=== PATIENT | male | born 1945 | race Caucasian/White ===

== ENCOUNTER 2016-04-09 15:23 | Inpatient (IN) | payer OTHER ==
[2016-04-09] MEDS ORDERED: NS 1,000 ML IV ONE (15:35)
--- NOTE | 2016-04-09 15:52 | EDPHY ---
HPI/HX/ROS/PE/MDM Narrative: CHIEF COMPLAINT: No appetite, feels like it's "time to " HPI: The patient is a 70 y/o male arriving with his family member after a month of consciously not eating because he feels like it is his time to requesting help eating. He says he has a history of "self-diagnosed prostate cancer" that he treated with "prayer and diet" and is now cured. Over the past couple months he's experienced loss of appetite. Following an anxiety attack around the first of March he made a conscious decision to stop eating because he "got a feeling like it was time for me to ." He's had a sense of dread surrounding the new president and says, "I thought if I just stayed in bed a little longer that would be it and I'd and [facility] His family member says the patient looks significantly worse than 6 months ago. He is here in the ED today requesting assistance with his loss of appetite. He says, "I need to eat. I need to get my health back." He denies abdominal pain, fever, diarrhea. REVIEW OF SYSTEMS: Aside from elements discussed in the HPI, a comprehensive 10-point review of systems was reviewed and is negative. PMH: "self-diagnosed prostate cancer treated with prayer and diet" - symptoms of bleeding and prostate cancer SOCIAL HISTORY: Family member at bedside. Psychiatrist - "I'm a doctor. I've been living a spiritual life for the last 40 years." Recently on several cruises. PHYSICAL EXAM: General:Patient is alert, in no acute distress. Cachectic with temporal wasting. ENT:Eyes are normal to inspection. ENT inspection normal. Dry mucous membranes. Neck: Normal inspection. Full range of motion. Respiratory:No respiratory distress. Breath sounds normal bilaterally. Cardiovascular: Tachycardic regular rate and rhythm. Strong peripheral pulses. Normal cap refill. Abdomen:The abdomen is nontender to palpation. There are no peritoneal signs. There are normal bowel sounds. Back: Normal to inspection. No tenderness to palpation. Skin: Normal color. No rash. Warm and dry. Extremities: Normal appearance. Full range of motion. Neuro: Oriented x3. Normal motor function. Normal sensory function. ED Course: IV established. Labs drawn including CBC, CHEM, LFT, UA. 1L IV NS administered. Several critical labs: potassium low at 6.7, WBC elevated 15.05, Hct low 24.8, urine culture indicated, BUN >200, creatinine elevated at 21.8. 1637: Reevaluated and discussed labs with patient and his family member. He continues to feel weak and states, "a human cannot survive on coca cola." I recommended admission to the hospital and further testing to determine cause of his renal function, which he agrees to. I suspect his story about untreated prostate cancer may be related to his current presentation. Chest x-ray, head CT , and EKG ordered. The 12 lead EKG was interpreted by myself. Sinus rhythm rate 85. See hard copy and/or "tracemaster" electronic copy for interpretation. Study: CT of the Head Indication: AMS, renal failure Results: CT scan of the head was obtained. The results of the study are negative. The study was read by the radiologist, Dr. Ortega. I viewed the images myself on the PACS system. Study: Chest x-ray Indication: AMS, renal failure Results: Chest x-ray was obtained. The results of the study are The study was read by the radiologist, . I viewed the images myself on the PACS system. 1648: Spoke with hospitalist service. Dr. Murcia accepts admission. - Data Points Laboratory Results: Laboratory Results 04/09/16 15:50 04/09/16 15:50 04/09/16 15:50 WBC 15.05 H 10^3/uL (3.80-9.50) RBC 2.83 L 10^6/uL (4.40-6.38) Hgb 8.4 L g/dL (13.7-17.5) Hct 24.8 L % (40.0-51.0) MCV 87.6 fL (81.5-99.8) MCH 29.7 pg (27.9-34.1) MCHC 33.9 g/dL (32.4-36.7) RDW 12.3 % (11.5-15.2) Plt Count 504 H 10^3/uL (150-400) MPV 9.4 fL (8.7-11.7) Neut % (Auto) 89.4 H % (39.3-74.2) Lymph % (Auto) 3.5 L % (15.0-45.0) Meagher % (Auto) 5.9 % (4.5-13.0) Eos % (Auto) 0.1 L % (0.6-7.6) Baso % (Auto) 0.1 L % (0.3-1.7) Nucleat RBC Rel Count 0.0 % (0.0-0.2) Absolute Neuts (auto) 13.45 H 10^3/uL (1.70-6.50) Absolute Lymphs (auto) 0.53 L 10^3/uL (1.00-3.00) Absolute Monos (auto) 0.89 H 10^3/uL (0.30-0.80) Absolute Eos (auto) 0.01 L 10^3/uL (0.03-0.40) Absolute Basos (auto) 0.02 10^3/uL (0.02-0.10) Absolute Nucleated RBC 0.00 10^3/uL (0-0.01) Immature Gran % 1.0 % (0.0-1.1) Immature Gran # 0.15 H 10^3/uL (0.00-0.10) PT 15.4 H SEC (12.0-15.0) INR 1.22 H (0.83-1.16) APTT 38.3 H SEC (23.0-38.0) Sodium 137 mEq/L (134-144) Potassium 6.7 H* mEq/L (3.5-5.2) Chloride 97 mEq/L (97-110) Carbon Dioxide 7 L* mEq/l (22-31) Anion Gap 33 mEq/L (8-16) BUN > 200 H* mg/dL (7-23) Creatinine 21.8 H* mg/dL (0.7-1.3) Estimated GFR 2 Glucose 136 H mg/dL (70-100) Calcium 8.6 mg/dL (8.5-10.4) Phosphorus 11.9 H mg/dL (2.5-4.5) Total Bilirubin 0.6 mg/dL (0.1-1.4) Conjugated Bilirubin 0.9 H mg/dL (0.0-0.5) Unconjugated Bilirubin 0.0 mg/dL (0.0-1.1) AST 13 L IU/L (17-59) ALT 27 IU/L (21-72) Alkaline Phosphatase 94 IU/L (38-126) Troponin I 0.013 ng/mL (0-0.034) Total Protein 9.1 H g/dL (6.3-8.2) Albumin 4.6 g/dL (3.5-5.0) Urine Color YELLOW Urine Appearance TURBID Urine pH 5.0 (5.0-7.5) Ur Specific [place] 1.011 (1.002-1.030) Urine Protein 2+ H (NEGATIVE) Urine Ketones NEGATIVE (NEGATIVE) Urine Blood 2+ H (NEGATIVE) Urine Nitrate NEGATIVE (NEGATIVE) Urine Bilirubin NEGATIVE (NEGATIVE) Urine Urobilinogen NEGATIVE EU (0.2-1.0) Ur Leukocyte Esterase 2+ H (NEGATIVE) Urine RBC 25-50 H /hpf (0-3) Urine WBC 50-182 H /hpf (0-3) Ur Epithelial Cells TRACE /lpf (NONE-1+) Urine Bacteria 3+ H /hpf (NONE SEEN) Ur Culture Indicated? INDICATED H (NI) Urine Glucose NEGATIVE (NEGATIVE) Medications Given: Discontinued Medications Sodium Chloride (Ns) 1,000 mls @ 0 mls/hr IV ONCE ONE PRN Reason: Wide Open Stop: 04/09/16 15:36 Last Admin: 04/09/16 15:59 Dose: 1,000 mls General Time Seen by Provider: 04/09/16 15:27 Initial Vital Signs: Initial Vital Signs Temperature (C) 36.3 C 04/09/16 15:28 Heart Rate 116 H 04/09/16 15:28 Respiratory Rate 22 H 04/09/16 15:28 Blood Pressure 179/96 H 04/09/16 15:28 O2 Sat (%) 95 04/09/16 15:28 O2 Delivery Mode Room Air Allergies/Adverse Reactions: No Known Allergies Allergy (Unverified 04/09/16 15:26) Home Medications: Medication Instructions Recorded NK [No Known Home Meds] 04/09/16 Departure - Departure Disposition: [facility] Inpatient Acute Clinical Impression: Acute renal failure, Cachexia, Dehydration, Anemia, Altered mental status, Hypokalemia, Loss of appetite Condition: Fair Referrals: NONE *PRIMARY CARE P,. [Primary Care Provider] - As per Instructions Report Scribed for: Jatin Dumont Report Scribed by: Kalyn Price Date of Report: 04/09/16 Time of Report: 15:34 Physician Review and Approval Statement: Portions of this note were transcribed by an ED scribe. I personally performed the history, physical exam, and medical decision making; and confirm the accuracy of the information in the transcribed note.
[2016-04-09 16:03] LABS: ABSOLUTE IMMATURE GRANULOCYTES 0.15 10^3/uL (0.00-0.10); ADD DIFF? NO; ADD MORPH? NO; ADD SCAN? NO; ATYPICAL LYMPHOCYTE FLAG 0 (0-99); FRAGMENT RBC FLAG 0 (0-99); HEMATOCRIT 24.8 % (40.0-51.0); HEMOGLOBIN 8.4 g/dL (13.7-17.5); LEFT SHIFT FLG 0 (0-99); LIPEMIA HEMOLYSIS FLAG 90 (0-99); MEAN CELL HEMOGLOBIN 29.7 pg (27.9-34.1); MEAN CELL HEMOGLOBIN CONCENTR. 33.9 g/dL (32.4-36.7); MEAN CELL VOLUME 87.6 fL (81.5-99.8); MEAN PLATELET VOLUME 9.4 fL (8.7-11.7); PLATELET CLUMPS FLAG 0 (0-99); PLATELET COUNT 504 10^3/uL (150-400); RED BLOOD CELL COUNT 2.83 10^6/uL (4.40-6.38); RED CELL DISTRIBUTION WIDTH 12.3 % (11.5-15.2)
[2016-04-09 16:15] LABS: COLOR YELLOW; LEUKOCYTE ESTERASE,URINE 2+ (NEGATIVE); NITRITE,URINE NEGATIVE (NEGATIVE)
[2016-04-09 16:22] LABS: ALANINE AMINOTRANSFERASE 27 IU/L (21-72); ALBUMIN 4.6 g/dL (3.5-5.0); ALKALINE PHOSPHATASE 94 IU/L (38-126); ASPARTATE AMINOTRANSFERASE 13 IU/L (17-59); BILIRUBIN,TOTAL 0.6 mg/dL (0.1-1.4); CALCIUM 8.6 mg/dL (8.5-10.4); CHLORIDE 97 mEq/L (97-110); GLUCOSE 136 mg/dL (70-100); SODIUM 137 mEq/L (134-144); TOTAL PROTEIN 9.1 g/dL (6.3-8.2)
[2016-04-09 16:23] LABS: BACTERIA 3+ /hpf (NONE SEEN); RBC,URINE 25-50 /hpf (0-3); WBC,URINE 50-182 /hpf (0-3)
[2016-04-09 16:26] LABS: CARBON DIOXIDE 7 mEq/l (22-31); POTASSIUM 6.7 mEq/L (3.5-5.2)
[2016-04-09 16:27] LABS: ANION GAP 33 mEq/L (8-16)
[2016-04-09 16:34] LABS: TROPONIN I 0.013 ng/mL (0-0.034)
[2016-04-09 16:35] LABS: GLOMERULAR FILTRATION RATE 2
[2016-04-09 16:37] LABS: CREATININE 21.8 mg/dL (0.7-1.3)
[2016-04-09 16:47] LABS: BILIRUBIN-CONJUGATED 0.9 mg/dL (0.0-0.5)
--- NOTE | 2016-04-09 16:47 | CPEKG ---
Heart Rate: 85 RR Interval: 706 P-R Interval: 156 QRSD Interval: 86 QT Interval: 372 QTC Interval: 443 P [place]: 73 QRS [place]: 6 T Wave [place]: 62 EKG Severity - NORMAL ECG - EKG Impression: SINUS RHYTHM Electronically Signed By: Claude Aparicio 09-Apr-2016 19:53:38
[2016-04-09 16:53] LABS: APTT 38.3 SEC (23.0-38.0); INR 1.22 (0.83-1.16); PROTIME(PATIENT) 15.4 SEC (12.0-15.0)
[2016-04-09] MEDS ORDERED: NS 1,000 ML IV SCH (17:00)
[2016-04-09] MEDS ORDERED: SODIUM POLY SULF 15 GM/60 ML BOTTLE PO ONE (17:03)
--- NOTE | 2016-04-09 17:18 | CT ---
CT Scan of the Head (Without Contrast) Clinical History: 70-year-old male with weight loss, nausea, and an altered mental status. Technique: Axial unenhanced images were obtained from the vertex through the skull base, reformatted at 5.00 and 1.50 mm increments, and reviewed in bone, brain, and subdural windows. Images were repro cessed in parasagittal and paracoronal planes. Dose reduction techniques were utilized. Comparison Study: None. Findings: The ventricles and basilar cisterns are mildly prominent (however consistent with mild age- appropriate cerebral cortical atrophy), and symmetrical in configuration. There is no midline shift, or other evidence of mass effect. There is no abnormal intra or extra-axial blood collection, or acut e infarction identified. The paranasal sinuses and the mastoids are patent. The craniocervical juncti on, sella turcica, pineal gland, and the orbits are within normal limits. There is atherosclerotic ca lcification of the cavernous carotid arteries. Impression: There is no acute abnormality identified on this unenhanced CT evaluation. If there is further clinical concern regarding the patient's symptoms, MR imaging is suggested, if no t otherwise contraindicated. Results were called to Dr. Jatin Dumont. A test result has been communicated to a licensed care provider and documented in the [employer] Critical Result system on 04/09/2016 17:13, Message ID [id number].
--- NOTE | 2016-04-09 17:41 | DX ---
Chest, PA and Lateral Views, at 4:46 p.m. Clinical History: 70-year-old male in the ED with dyspnea, weight loss, and nausea. Comparison Study: None. Findings: Telemetry monitoring lead lines are present. The cardiac silhouette is mildly enlarged, and there is some tortuosity of the descending thoracic aorta. There is no focal infiltrate, atelectasis , pleural effusion, peripheral interstitial edema, or pneumothorax. The osseous structures are age-ap propriate, with some degenerative change of the midthoracic spine and a mild kyphoscoliosis. The ian ent is slightly rotated to the right. Impression: Mild cardiac silhouette enlargement, with no focal infiltrate or evidence of congestive h eart failure.
[2016-04-09] MEDS ORDERED: INSULIN REGULAR HUMAN 100 UNIT/ML IVP ONE (17:46)
[2016-04-09] MEDS ORDERED: D50W 25 GM/50 ML SYR IVP ONE (17:52)
[2016-04-09] MEDS ORDERED: SODIUM BICARBONATE 150 MEQ in D5W 1,000 ML IV SCH (18:30)
--- NOTE | 2016-04-09 18:33 | SOAPPROG ---
SOAP Progress Note Assessment/Plan: Assessment: please see dictation # [id number] I discussed recs with ER team and Hospitalist Objective: Vital Signs Temp Pulse Resp BP Pulse Ox 36.3 C 116 H 22 H 179/96 H 95 04/09/16 15:28 04/09/16 15:28 04/09/16 15:28 04/09/16 15:28 04/09/16 15:28 PT 15.4 SEC (12.0-15.0) H 04/09/16 15:50 INR 1.22 (0.83-1.16) H 04/09/16 15:50 ICD10 Worksheet Patient Problems: Problems Problem Status Diagnosed Acute renal failure Acute Altered mental status Acute Anemia Acute Cachexia Acute Dehydration Acute Hypokalemia Acute Loss of appetite Acute
[2016-04-09] MEDS: ONDANSETRON 4 MG/2 ML VIAL IVP PRN (18:56)
--- NOTE | 2016-04-09 18:57 | US ---
Renal Sonography with Color and Spectral Doppler Analysis Clinical History: 70-year-old male admitted from the ED with complaints of dyspnea, weight loss, and nausea, and found to be in acute renal failure. Technique: A curvilinear 5 MHz transducer was used to sonographically evaluate the kidneys and the ur inary bladder. Color and spectral Doppler analysis of the segmental renal arteries was performed, as well as color Doppler to assess for the presence of ureteral jets in the bladder. Comparison Study: None. Findings: RENAL SONOGRAPHY: There is severe bilateral hydronephrosis with cortical thinning (more so on the rig ht kidney than the left). The right kidney measures 13.4 x 6.4 x 6.7 cm, and has a renal cortical thi ckness of 3.1 mm. The left kidney measures 12.8 x 7.8 x 9.9 cm, and has a renal cortical thickness of 6.4 mm. There is no focal cortical mass nor is there any perinephric fluid. The urinary bladder is d istended with a prevoid volume of 1217 mL. Mobile debris is seen within the bladder; correlation with urinalysis is suggested. Ureteral jets are identified. The patient indicated to the statistics professor that he had voided before the scan, but only approximately 10 mL, and was unable to void again. The featu res suggest a potential bladder outlet obstruction, and urologic consultation is suggested. Impression: 1. Severe bilateral hydronephrosis with renal cortical thinning, right greater than left. 2. Urinary bladder distention, and an inability to void, suggesting potential bladder outlet obstruct ion. Clinical correlation with urologic consultation is suggested. COLOR AND SPECTRAL DOPPLER ANALYSIS: The peak systolic aortic velocity is 146 m/s, and the right main renal artery peak systolic velocity is 61 cm/s (for a maximal right peak systolic velocity to ariel l aortic peak systolic velocity ratio of 0.41). On the left side, this ratio measures 0.58. These are within normal range (normal should be less than 3.50). The right and left main renal arteries are pa tent, as are the main renal veins. The right kidney segmental renal arteries have systolic ascension times ranging from 15 to 59 milliseconds and the left kidney has systolic ascension times ranging fro m 22 to 51 milliseconds. There is no pulses parvus et tardus waveform. As a point of reference, a nor mal acceleration time should be less than 70 ms. The resistive index associated with the main right r enal artery is elevated at 0.83, and with the main left renal artery is 0.84(normal range should be l ess than 0.70); these features are nonspecific, but may be a result of the obstructive uropathy. Impression: There is no sonographic evidence of renal vascular hypertension.
--- NOTE | 2016-04-09 19:20 | GHP ---
[f rep st] HISTORY AND PHYSICAL DATE OF ADMISSION: 04/09/2016 CHIEF COMPLAINT: Nausea and vomiting. HISTORY OF PRESENT ILLNESS: A 70-year-old male with a limited previous medical history presents with 1 month of inability to tolerate p.o. The patient has a previous history of intermittent polysubsta nce abuse and a self-diagnosed suspicion for prostate cancer that began approximately 4 years ago wit h difficulty initiating urine, hematuria and abdominal discomfort. The patient is a strong spiritual believer and has chosen throughout his life to use his mosque and spiritual beliefs to treat his medical and physical complaints. Four years ago when he began experiencing frequency, hesitancy and hematuria decided to let God take control of his medical path and he had intermittent resolution of h is symptoms. It was not until a month ago when he started dramatically losing weight, he reports 25 pounds in 1 month, and difficulty progressively passing urine, that he started noting sensation of fa tigue and nausea that became so persistent that he has been able to only keep down sips of Coca-Cola over the course of the last month. He, therefore, presented for evaluation today. In the emergency department, he denies chest pain. Denies shortness of breath. Denies acute vision changes or headac he. Denies dysphagia. Denies cough. Reports nausea and vomiting that he describes as nonbloody and some pressure in the lower abdomen, hesitancy with his urinary stream although his hematuria sounds to have resolved. His urine is darkly discolored baseline. Reports intermittent unilateral lower ex tremity edema, but none recently, a 25 pounds weight loss as described above. No specific numbness o r tingling. PAST MEDICAL HISTORY: 1. Polysubstance abuse in the past. 2. Facial skin cancer, treated surgically multiple times. 3. Suspected prostate cancer. Never diagnosed or treated. 4. Chronic intermittent frequency hesitancy and hematuria. SOCIAL HISTORY: History of alcohol abuse and drug abuse in the past. None current. Denies tobacco. FAMILY HISTORY: Negative for prostate cancer. Positive for colorectal cancer in multiple family mem bers. ADVANCED DIRECTIVES: The patient wishes to be full cor, full tube. His son would be his medical dec ision maker. REVIEW OF SYSTEMS: A 10-point review of systems is negative with the exception of that reported in t he HPI. PHYSICAL EXAMINATION: VITAL SIGNS: Blood pressure 175/96, heart rate 116, respiratory rate 22, satu rating 95% on room air, afebrile at 36.3. GENERAL: This is a cachectic appearing male. HEENT: Not able for very dry mucous membranes. Eyes are negative for any icterus. CARDIAC: Patient is tachyca rdic, quiet systolic murmur is appreciated. PULMONARY: Good respiratory effort. Clear to auscultat ion bilaterally. GASTROINTESTINAL: Abdomen has positive bowel sounds, is soft and nontender to palp ation. MUSCULOSKELETAL: Negative for lower extremity edema. SKIN: Negative for any rashes. NEURO LOGIC: The patient is alert and oriented x3. PSYCHIATRIC: He is cooperative on interview and exami [facility]. DATA: EKG, which I personally reviewed and interpreted, shows sinus rhythm with peaked T-waves. Chest x-ray, which I personally reviewed and interpreted, shows no acute infiltrates or edema. Borde rline cardiomegaly. Noncontrast CT of the head, which I personally reviewed and interpreted, shows no acute abnormality. LABORATORY DATA: White count 15.5, hematocrit 24.8, hemoglobin of 8, platelet count of 504. INR 1.2 2. Sodium of 137, potassium of 6.7, bicarb of 7, anion gap of 33, BUN greater than 200, creatinine 2 1.8. Phosphorus 11.9. AST 13. Total protein 9.1. Urinalysis grossly abnormal, elevated red cells, white cells, positive leukocyte esterase, positive b lood, positive protein. ASSESSMENT AND PLAN: This is a 70-year-old male, presenting with nausea and vomiting. 1. Acute on suspected chronic kidney injury. The patient has abnormal electrolytes, abnormal acid b ase function. Suspect based on his history that it is multifactorial, both obstruction as well as li sherin hypovolemic injury. Will place a Alba catheter, aggressively fluid resuscitate and obtain tigist l ultrasound. Nephrology has been consulted and will follow along. 2. Hyperkalemia secondary to acute kidney injury. Patient has peaked T-waves on EKG. We will treat in the emergency department with IV insulin and an amp of D50. We will continue to follow his elect rolytes through the evening after Alba placement and fluid resuscitation. I did discuss with Nephro logy for possible emergent hemodialysis if we are unable to get the patient's potassium levels down w ith the above-mentioned interventions and Kayexalate. 3. Severe metabolic acidosis secondary to acute kidney injury. The patient is presenting with an an ion gap greater than 30 and a bicarb of 7. Will initiate fluid resuscitation with bicarb containing fluids, and follow acid base progress through the course of the evening. Again we have discussed wesley lysis as a potential emergent intervention if needed. 4. Hyperphosphatemia. Will discuss with Nephrology, can initiate PhosLo or Renagel depending on the patient's ability to tolerate medications and his electrolyte response to fluid resuscitation. 5. Suspected malignancy. Based on the patient's symptoms, will check a PSA. Will likely need intra abdominal imaging, but will not obtain those actively as the patient has acute kidney injury. We michelle l send a PSA and potentially other malignancy screening labs. Can consider noncontrasted CT scan in the next day or two. 6. Severe protein-calorie malnutrition. The patient is presenting with extreme weight loss in the m onth previous. Will consult Dietary. Treat his nausea as best we can with reversal of his uremia an d antiemetics. Encourage p.o. intake. 7. Normocytic anemia. Suspect this is likely anemia of chronic disease related to renal disease. W ill send iron studies and workup, patient may benefit if iron replete from epoetin. 8. Abnormal urinalysis. The patient has had many genitourinary symptoms, it is unclear to me at thi s time if this is an active infection. Will send urine for culture. If the patient spikes a fever, would send blood cultures and initiate empiric antibiotics. 9. Prophylaxis with heparin. DIET: Renal with enrichments. DISPOSITION: Greater than 2 midnights as the patient requires critical medical stabilization for sev ere electrolyte abnormalities and acid base disturbance, as well as a diagnostic workup for a potenti al underlying malignancy. I have discussed the case with the emergency room physician. Patient will be triaged to the stepdown unit secondary to his electrolyte and acid base abnormalities. /[id number]/MODL
[2016-04-09 20:47] LABS: INR 1.26 (0.83-1.16); PROTIME(PATIENT) 15.8 SEC (12.0-15.0)
[2016-04-09] MEDS: CALCIUM ACETATE 667 MG CAP PO SCH (20:48)
[2016-04-09 20:57] LABS: ANION GAP 25 mEq/L (8-16); CALCIUM 7.6 mg/dL (8.5-10.4); CHLORIDE 101 mEq/L (97-110); GLUCOSE 178 mg/dL (70-100); POTASSIUM 6.2 mEq/L (3.5-5.2); SODIUM 135 mEq/L (134-144)
[2016-04-09 21:02] LABS: CARBON DIOXIDE 9 mEq/l (22-31)
[2016-04-09] MEDS: HEPARIN 5,000 UNIT/0.5 ML SYR SC SCH (21:05)
[2016-04-09 21:06] LABS: TOTAL IRON BINDING CAPACITY 148 ug/dL (260-490)
[2016-04-09 21:07] LABS: % SATURATION 100 % (20-55)
[2016-04-09 21:09] LABS: GLOMERULAR FILTRATION RATE 2; PTH INTACT NO MINERALS 530.7 pg/ml (10.8-79.4)
[2016-04-09 21:10] LABS: CREATININE 19.9 mg/dL (0.7-1.3)
--- NOTE | 2016-04-09 22:06 | GCON ---
[f rep st] CONSULTATION INPATIENT NEPHROLOGY CONSULTATION DATE OF CONSULTATION: 04/09/2016 REFERRING PHYSICIAN: Megan Murcia MD REASON FOR CONSULTATION: Acute kidney injury. HISTORY OF PRESENT ILLNESS: The patient is a 70-year-old man with a history of prior alcohol abuse who presented to the emergency [facility] complaining of weakness, persistent nausea/vomiting for several weeks, and weight loss. The patient is a retired psychiatrist. He reports that he self-diagnosed himself with prostate cancer about 4 years ago when he developed obstructive urinary symptoms and gross hematuria. He never sought treatment for this and never has had it formally diagnosed. His symptoms were intermittent, but have worsened recently. He notes that he had difficulty initiating urine and has noted some gross hematuria at times. He reports his urine lately has been cloudy. He has had several weeks of nausea/vomiting with poor overall intake. He estimates that he has lost approximately 25 lbs over the past month. Again, he has not sought any medical care for this up until now. He has not had any labs done in several years. He has strong spiritual beliefs and has felt that with prayer and changing his diet he could treat his symptoms. On arrival to the emergency room, he was noted to have a creatinine of 21.8, a potassium of 6.7, and a bicarb of 7. He underwent a head CT that was negative. He has been given IV fluids and he is also receiving Kayexalate and insulin and bicarbonate for management of hyperkalemia. He had a chest x-ray that was negative. He is somewhat disorganized in answering his questions and is somewhat difficult to focus. He denies any diarrhea. He has not been taking any herbal supplements or NSAIDs. He denies any family history of any kidney disease. As far as he is aware, he has never had an abnormal creatinine in the past. He admitted to former alcohol abuse, but has not had any alcohol in over 20 years. REVIEW OF SYSTEMS: GENERAL: He has had very poor oral intake. He has had an approximately 25 lb weight loss over the past month. Generalized weakness. HEENT: No sore throat. PULMONARY: No shortness of breath. CARDIAC: No chest pain, no lower extremity edema. GI: He has had nonbloody vomiting and persistent nausea. No diarrhea. : He has had difficulty urinating. Some cloudy urine with intermittent hematuria. No flank pain. SKIN: No rash. HEMATOLOGIC: No bleeding. ENDOCRINE: No history of diabetes. No polyuria or polydipsia. NEUROLOGIC: No dizziness. He has had generalized weakness. PAST MEDICAL HISTORY: 1. Suspected BPH with symptoms of obstructive urinary symptoms and gross hematuria for approximately four years. 2. Former alcohol abuse. SOCIAL HISTORY: He is a former psychiatrist. Has a son who is here with him. He is . Denies any tobacco or drugs. Former alcohol use, but has not used in over 20 years. FAMILY HISTORY: His father had colorectal cancer and leukemia. He also has a sister with leukemia. No kidney disease as far as he is aware. PHYSICAL EXAMINATION: VITAL SIGNS: Temperature 36.3, blood pressure 179/96, pulse is 116, saturating 95% on room air. GENERAL: He is frail-appearing. In no acute distress. Not tachypneic. Lying in bed comfortably. HEENT: No scleral icterus. His mucous membranes are very dry. NECK: Supple. LUNGS: Clear to auscultation bilaterally. CARDIOVASCULAR: Regular rate and rhythm. No rub. ABDOMEN: Soft, nontender. No suprapubic tenderness. EXTREMITIES: No edema. Warm, well-perfused. SKIN: No obvious rash. NEUROLOGIC: Alert and oriented x3. Somewhat difficult to focus on exam. LABS: His sodium is 137, potassium 6.7, chloride 97, bicarbonate 7, BUN greater than 200, creatinine 21.8, glucose 136. Calcium 8.6, phosphate 11.9, total bilirubin 0.6, AST 13, ALT 27, alkaline phosphatase 94, troponin 0.013, total protein 9.1, albumin 4.6. White blood cell count 15.0, hemoglobin 8.4, hematocrit 24.8, platelets 504. Urine showed 2+ protein, 2+ blood, 50-180 white blood cell count, 3+ bacteria, negative nitrites. IMAGIN. Chest x-ray showed mild cardiac silhouette enlargement. No focal infiltrate. 2. Head CT with no acute abnormalities. ASSESSMENT AND PLAN: The patient is a 70-year-old man who now presents with acute kidney injury, weight loss, nausea/vomiting, hyperkalemia, metabolic acidosis, anemia, and progressive weight loss: 1. Acute kidney injury. I suspect he likely had significant advanced chronic kidney disease at baseline given the durations of his symptoms. He does report obstructive urinary symptoms for the past 4 years. I suspect that was the likely inciting event for his kidney dysfunction and he has now tipped over the point where he has been uremic-causing him to have poor oral intake. He does appear very dehydrated on exam. We will place a Alba catheter now and get an urgent renal ultrasound. We will give him aggressive IV fluids and have changed him to an IV bicarbonate drip. I have explained to the patient that we may need to initiate dialysis tonight if we do not see any improvement in repeat labs in a few hours and with placement of a Alba catheter. I will evaluate the renal ultrasound to determine the size of his renal cortex, as I suspect he does have advanced chronic kidney disease at baseline as well as evaluate for hydronephrosis. 2. Hyperkalemia. We are managing this medically with Kayexalate, IV fluids, and insulin. We also placed in a Alba catheter to help relieve the obstruction. We have repeat labs pending to ensure that it is improving. Again , we will need to initiate dialysis if this is not able to be managed medically. 3. Severe metabolic acidosis. I suspect this is likely due to his acute kidney injury. We are giving him some bicarbonate and fluids. Again, we will need to initiate dialysis if this does not significantly improve. 4. Anemia. I will check iron stores and an SPEP. He does have an elevated total protein relative to his albumin. I suspect he likely does have some anemia of chronic kidney disease given the duration of his symptoms. 5. 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 We will start him on calcium acetate given his elevated phosphorus. I will also check a PTH. 6. Obstructive urinary symptoms. We will await to see the renal ultrasound report. We may need to get Urology involved depending on these results. I have discussed my recommendations with both the Emergency Medicine team as well as the Hospitalists. We will have repeat labs here pending and will follow closely. Please do not hesitate to call with any questions. /[id number]/MODL MTDD
[2016-04-10 00:59] LABS: ANION GAP 24 mEq/L (8-16); CALCIUM 7.3 mg/dL (8.5-10.4); CARBON DIOXIDE 16 mEq/l (22-31); CHLORIDE 99 mEq/L (97-110); GLUCOSE 178 mg/dL (70-100); POTASSIUM 5.5 mEq/L (3.5-5.2); SODIUM 139 mEq/L (134-144)
[2016-04-10 01:10] LABS: GLOMERULAR FILTRATION RATE 2
[2016-04-10 01:12] LABS: CREATININE 20.1 mg/dL (0.7-1.3)
[2016-04-10 05:40] LABS: % IMMATURE GRANULYOCYTES 0.9 % (0.0-1.1); ABSOLUTE IMMATURE GRANULOCYTES 0.13 10^3/uL (0.00-0.10); ADD DIFF? NO; ADD MORPH? YES; ADD SCAN? NO; ATYPICAL LYMPHOCYTE FLAG 0 (0-99); FRAGMENT RBC FLAG 0 (0-99); LEFT SHIFT FLG 0 (0-99); LIPEMIA HEMOLYSIS FLAG 90 (0-99); MEAN CELL HEMOGLOBIN 30.7 pg (27.9-34.1); MEAN CELL HEMOGLOBIN CONCENTR. 35.5 g/dL (32.4-36.7); MEAN CELL VOLUME 86.4 fL (81.5-99.8); PLATELET CLUMPS FLAG 0 (0-99); PLATELET COUNT 367 10^3/uL (150-400); RED BLOOD CELL COUNT 1.99 10^6/uL (4.40-6.38); RED CELL DISTRIBUTION WIDTH 12.2 % (11.5-15.2)
[2016-04-10 05:42] LABS: HEMOGLOBIN 6.1 g/dL (13.7-17.5)
[2016-04-10 05:45] LABS: HEMATOCRIT 17.2 % (40.0-51.0)
[2016-04-10 06:00] LABS: ALBUMIN 3.1 g/dL (3.5-5.0); ANION GAP 25 mEq/L (8-16); CALCIUM 7.1 mg/dL (8.5-10.4); CARBON DIOXIDE 17 mEq/l (22-31); CHLORIDE 99 mEq/L (97-110); GLUCOSE 150 mg/dL (70-100); POTASSIUM 4.8 mEq/L (3.5-5.2); SODIUM 141 mEq/L (134-144)
[2016-04-10] MEDS: HEPARIN 5,000 UNIT/0.5 ML SYR SC SCH (06:01)
[2016-04-10 06:09] LABS: GLOMERULAR FILTRATION RATE 2
[2016-04-10 06:11] LABS: CREATININE 19.3 mg/dL (0.7-1.3)
[2016-04-10 06:55] LABS: ELLIPTOCYTES 1+; PLATELET ESTIMATE ADEQUATE (ADEQ)
[2016-04-10 07:01] LABS: HEMATOCRIT 18.1 % (40.0-51.0)
[2016-04-10 07:02] LABS: LARGE PLATELETS PRESENT; TOXIC GRANULATION PRESENT; TOXIC VACUOLIZATION PRESENT
[2016-04-10 07:03] LABS: MICROCYTES 1+
[2016-04-10 07:13] LABS: HEMOGLOBIN 6.4 g/dL (13.7-17.5)
[2016-04-10 10:25] LABS: IONIZED CALCIUM 0.87 MMOL/L (1.12-1.30)
[2016-04-10] MEDS: CALCIUM ACETATE 667 MG CAP PO SCH ×3 (10:27→21:05)
--- NOTE | 2016-04-10 10:54 | SOAPPROG ---
SOAP Progress Note Assessment/Plan: Assessment: 1)Non-oliguric DEE vs CKD- suspect he has very advanced CKD, possibly even ESRD at this point -severe bilateral hydro with thinning of renal cortex- suspect longstanding obstruction (history of symptoms for 4 years supportive). He was also quite intravascularly depleted on admit. Labs suggest long duration and thus I suspect is likely ESRD -some improvement in K, CO2 with hydration/bicarb gtt but no signif improvement in Cr with placement of deluna/hydration suggesting long duration. I am afraid he will require HD- will see what labs look like in am but anticipate he may need HD tomorrow if no improvement (I will make him NPO after MN for IR TDC placement and have discussed this with him) -continue IVF as still looks dry on exam, large UOP -dialysis discussed at length with pt and family- he is asking to hold off as long as possible but agreeable to start if needed 2)Hyperkalemia -improved with medical management, down to 4.8 this am -continue close monitoring, renal diet 3)Metabolic acidosis -due to renal dysfunction -improved with bicarb gtt- would switch to d5 with 75 meq bicarb now and then can switch to 1/2 NS when serum bicarb > 20 (reviewed with RN) -follow iCA- will give 2g Ca now and recheck this afternoon (given bicarb gtt) 4)MBD Of CKD -started phoslo -PTH in 500s (again suggestive of long duration of renal dysfunction)- will start calcitriol once phos better 5)Anemia of CKD -had significant drop in Hct overnight (no witnessed bleeding)- getting PRBCs -will discuss starting Epo with him -has Tsat 100%?? may consider discussing with heme re hemochromatosis -SPEP pending 6)Bilateral hydro -needs urology input-?all BPH vs malignancy (hospitalist to call them) -keep deluna in -urine cloudy and started on Ceftriaxone for suspected infection while awaiting culture I discussed with hospitalist and RN Laura Stein MD [facility] pager [phone] office [phone] 04/10/16 11:47 Subjective: Feeling much better today- able to eat breakfast, no n/v. Had BM last night. No sob. Excellent UOP after placement of deluna- pink tinged. Getting PRBCs now. No bleeding noted. I discussed at length with pt and family at bedside. Objective: Vital Signs Temp Pulse Resp BP Pulse Ox 36.6 C 94 17 152/76 H 100 04/10/16 08:19 04/10/16 10:00 04/10/16 10:00 04/10/16 10:00 04/10/16 10:00 Laboratory Results 04/10/16 06:25 04/10/16 10:01 04/09/16 04/10/16 04/11/16 05:59 05:59 05:59 Intake Total 5408 Output Total 4600 Balance 808 PT 15.8 SEC (12.0-15.0) H 04/09/16 20:25 INR 1.26 (0.83-1.16) H 04/09/16 20:25 Physical Exam - Physical Exam General Appearance: alert, no apparent distress EENT: other (dry mm) Neck: supple Respiratory: lungs clear Cardiac/Chest: regular rate, rhythm, other (no rub) Abdomen: normal bowel sounds, non-tender, soft Male Genitalia: other (deluna with pink tinged urine in bag) Skin: warm/dry Extremities: other (no edema) Neuro/Psych: alert, oriented x 3 ICD10 Worksheet Patient Problems: Problems Problem Status Diagnosed Acute renal failure Acute Altered mental status Acute Anemia Acute Cachexia Acute Dehydration Acute Hypokalemia Acute Loss of appetite Acute
[2016-04-10] MEDS ORDERED: D5W 1,000 ML IV SCH (11:00)
[2016-04-10] MEDS ORDERED: SODIUM BICARBONATE 75 MEQ in D5W 1,000 ML IV SCH (11:00)
[2016-04-10 11:08] LABS: ANION GAP 27 mEq/L (8-16); CARBON DIOXIDE 19 mEq/l (22-31); CHLORIDE 94 mEq/L (97-110); GLUCOSE 144 mg/dL (70-100); POTASSIUM 4.5 mEq/L (3.5-5.2); SODIUM 140 mEq/L (134-144)
[2016-04-10 11:28] LABS: CREATININE 17.8 mg/dL (0.7-1.3)
[2016-04-10 11:29] LABS: GLOMERULAR FILTRATION RATE 3
[2016-04-10] MEDS ORDERED: CALCIUM GLUCONATE 2 GM in D5W 50 ML IV ONE (11:44)
--- NOTE | 2016-04-10 12:17 | HOSPPROG ---
Hospitalist Progress Note Assessment/Plan: #DEE vs. suspected CKD: appreciate renal consultation. Suspect chronic, but dehydration played role -K better today. Perhaps HD tomorrow #Hyperkalemia: resolved with meds -monitor for auto-diuresis. Cont D5 IV -Hyperkalemia: resolved with kayexylate, insulin. Cont telemety #Metabolic acidosis: due to renal failure. Cont bicarb @75 #Normocytic vs acute blood anemia: some hematuria, dilutional with IVFs. Transfusing 1 unit RBC today #Question of malignancy: PSA 3.11. Will warrant further imaging #Elevated iron sat: >100. Does not have diabetes, arthralgias, or liver disease to suggest hemochromatosis. May be due to Etoh abuse? Check abd U/S. Consider retesting with acute illness #Bilateral hydronephrosis: concern for possible malignancy? Consult urology on Monday #Pyuria: culture with normal simeon. Stop abx #Protein gap: #Diet: renal #DVT px: SCD #Disp: at high-risk for arrhythmia, possible HD, telemetry Subjective: feels much better today Objective: Vital Signs Temp Pulse Resp BP Pulse Ox 36.6 C 94 17 152/76 H 100 04/10/16 08:19 04/10/16 10:00 04/10/16 10:00 04/10/16 10:00 04/10/16 10:00 Laboratory Results 04/10/16 06:25 04/10/16 10:35 04/09/16 04/10/16 04/11/16 05:59 05:59 05:59 Intake Total 5408 435 Output Total 4600 Balance 808 435 PT 15.8 SEC (12.0-15.0) H 04/09/16 20:25 INR 1.26 (0.83-1.16) H 04/09/16 20:25 ICD10 Worksheet Patient Problems: Problems Problem Status Diagnosed Acute renal failure Acute Altered mental status Acute Anemia Acute Cachexia Acute Dehydration Acute Hypokalemia Acute Loss of appetite Acute
[2016-04-10] MEDS: ONDANSETRON 4 MG/2 ML VIAL IVP PRN ×2 (12:42→16:42)
[2016-04-10 13:07] LABS: MEAN CELL HEMOGLOBIN 29.4 pg (27.9-34.1); MEAN CELL HEMOGLOBIN CONCENTR. 34.8 g/dL (32.4-36.7); MEAN CELL VOLUME 84.6 fL (81.5-99.8); RED BLOOD CELL COUNT 2.72 10^6/uL (4.40-6.38); RED CELL DISTRIBUTION WIDTH 12.7 % (11.5-15.2)
[2016-04-10 16:54] LABS: IONIZED CALCIUM 0.93 MMOL/L (1.12-1.30)
[2016-04-10] MEDS ORDERED: PROMETHAZINE HCL 25 MG/ML INJ IVP PRN (17:03)
[2016-04-10 17:28] LABS: ALBUMIN 3.8 g/dL (3.5-5.0); ANION GAP 25 mEq/L (8-16); CALCIUM 7.1 mg/dL (8.5-10.4); CARBON DIOXIDE 20 mEq/l (22-31); CHLORIDE 91 mEq/L (97-110); GLUCOSE 142 mg/dL (70-100); POTASSIUM 4.2 mEq/L (3.5-5.2); SODIUM 136 mEq/L (134-144)
[2016-04-10 17:52] LABS: GLOMERULAR FILTRATION RATE 3
--- NOTE | 2016-04-10 22:15 | US ---
Ultrasound of the Abdomen Limited History: Cirrhosis. Comparison: None. Findings: Gallbladder: Gallbladder sludge noted. No shadowing calculi, wall thickening, or pericholecystic flui d. Common bile duct is 4 mm in diameter which is normal. Liver: Liver is diffusely increased in echogenicity throughout. The right lobe of the liver there is a 1.3 x 0.9 x 0.8 cm simple cyst. Diffuse heterogeneity limits evaluation for hepatic lesions. Howeve r no definite solid hepatic lesions noted. Left lobe liver not well visualized due to bowel gas. Renal: Right kidney measures 12 x 6 x 6 cm with dilated renal pelvis and calyces consistent with hydr onephrosis. Renal cortical thinning noted. Pancreas: Obscured by bowel gas. Aorta: Obscured by bowel gas. Impression: 1. Gallbladder sludge without cholelithiasis or biliary ductal dilation. 2. Hepatomegaly and hepatic steatosis which limits evaluation for focal hepatic lesions. Left lobe of liver not well visualized. Cyst identified in the right lobe of liver measuring 1.3 cm without defin ite solid masses. Consider additional CT abdomen or MRI abdomen for further evaluation. 3. Pancreas, aorta, and left lobe of liver procedure by bowel gas. 4. Right hydronephrosis.
[2016-04-10 22:35] LABS: ANION GAP 25 mEq/L (8-16); CALCIUM 6.4 mg/dL (8.5-10.4); CARBON DIOXIDE 21 mEq/l (22-31); CHLORIDE 89 mEq/L (97-110); GLUCOSE 146 mg/dL (70-100); POTASSIUM 3.9 mEq/L (3.5-5.2); SODIUM 135 mEq/L (134-144)
[2016-04-10 23:13] LABS: CREATININE 15.8 mg/dL (0.7-1.3); GLOMERULAR FILTRATION RATE 3
[2016-04-10] MEDS: 1/2 NS 1,000 ML IV SCH (23:30)
[2016-04-11 05:20] LABS: HEMATOCRIT 19.5 % (40.0-51.0); MEAN CELL HEMOGLOBIN 30.2 pg (27.9-34.1); MEAN CELL HEMOGLOBIN CONCENTR. 35.9 g/dL (32.4-36.7); MEAN CELL VOLUME 84.1 fL (81.5-99.8); RED BLOOD CELL COUNT 2.32 10^6/uL (4.40-6.38)
[2016-04-11 05:42] LABS: ALBUMIN 3.3 g/dL (3.5-5.0); ANION GAP 23 mEq/L (8-16); CALCIUM 6.5 mg/dL (8.5-10.4); CARBON DIOXIDE 21 mEq/l (22-31); CHLORIDE 90 mEq/L (97-110); GLUCOSE 102 mg/dL (70-100); POTASSIUM 3.6 mEq/L (3.5-5.2); SODIUM 134 mEq/L (134-144)
[2016-04-11 05:52] LABS: CREATININE 16.5 mg/dL (0.7-1.3); GLOMERULAR FILTRATION RATE 3
[2016-04-11] MEDS: CALCIUM ACETATE 667 MG CAP PO SCH ×3 (09:37→19:54)
--- NOTE | 2016-04-11 11:09 | SOAPPROG ---
SOAP Progress Note Assessment/Plan: Assessment/Plan: DEE: pt admitted with marked renal failure that is likely chronic in nature after longstanding obstruction, Cr of 21, hyperkalemic and acidemic. He may also had some prerenal DEE as well. - No emergent need for HD today. However, his Cr is very slowly downtrending and likely has ESRD at this point and will need HD. - Will plan to go forward with IR placement of TDC today. - Will likely do HD #1 tomorrow. - Continue IVFs. - Avoid MOM, morphine, demerol, NSAIDs, contrast, aminoglycosides, fleets, and other nephrotoxins. Metabolic acidosis: improved with bicarb supplementation, will modulate further with HD. MBD: Continue calcium acetate with meals, phos slowly downtrending, will continue to monitor. His high PTH implies chronic renal failure. Anemia: will discuss with pt getting epo with HD. Subjective: No acute events overnight. Pt states that he has been thinking and praying on his situation. He is not sure he is ready to but is still trying to wrap his head around needing dialysis at his age. Objective: Vital Signs Temp Pulse Resp BP Pulse Ox 36.7 C 72 15 139/64 H 94 04/10/16 20:00 04/11/16 04:00 04/11/16 04:00 04/11/16 04:00 04/11/16 04:00 Laboratory Results 04/11/16 05:10 04/11/16 05:10 04/10/16 04/11/16 04/12/16 05:59 05:59 05:59 Intake Total 5408 2843 Output Total 4600 3775 Balance 808 -932 PT 15.8 SEC (12.0-15.0) H 04/09/16 20:25 INR 1.26 (0.83-1.16) H 04/09/16 20:25 General: alert and oriented, no acute distress Eyes: EOMI, PERRL OP: Clear CV: RRR Resp: nonlabored respirations Abd; Soft, NT/ND Ext: no edema BLE Neuro: CN II-XII grossly intact Psych: cooperative, appropriate mood and affect ICD10 Worksheet Patient Problems: Problems Problem Status Diagnosed Acute renal failure Acute Altered mental status Acute Anemia Acute Cachexia Acute Dehydration Acute Hypokalemia Acute Loss of appetite Acute
--- NOTE | 2016-04-11 14:57 | HOSPPROG ---
Hospitalist Progress Note Assessment/Plan: 70 yo M with unknown PMH presenting with pradip on ckd, anemia and bilateral hydronephrosis # pradip on ckd: with BUN continued to be > 200, creatinine in the 20s on arrival. Suspect that this is multifactorial and of some chronicity, some component of TIDWELL as well as hypovolemia and improved with deluna placement and IVF. Will need HD, likely in the am. Renal following. Renally dosing meds, avoid nephrotoxins. Does continue to make good UOP. IR to place HD cath today # hyperkalemia: improved with medical mgmt, monitoring # seizure/myoclonus: patient had what appeared to be a 12 second seizure vs myoclonic activity. He states it was an "anxiety attack" and similar to bouts of anxiety he has had in the place. 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 Non focal on neuro exam, may necessitate HD sooner. # anemia: has continued to trend down post tx yesterday, plan to transfuse again today. Likely 2/2 anemia of ckd but ? underlying liver disease contributing as next # hepatomegaly/hepatic steatosis: with long hx of etoh abuse per his report, would like to further characterize liver given possible liver cyst on US, however would need abd ct with contrast and will wait until HD initiated for that. # etoh abuse: without e/o w/d, liver imaging as above # anxiety/depression: patient tearful, anxious, perseverative in his thought process. Some of this undoubtedly being driven by uremia. May need psych eval at some point but would like his active medical issues more stable first so that it is more clear what is the primary etiology for his psych issues. # dispo: IP status, multiple active medical issues necessitating step down unit and complex decision making Patient new to my care. Old records reviewed and summarized as above. Care plan reviewed with renal MD. > 35 min of care spent in critical care time in direct face to face patient care and coordination of care surrounding suspected seizure Subjective: patient tearful, states he had an "anxiety attack", worried about his life after dc etc Objective: Vital Signs Temp Pulse Resp BP Pulse Ox 36.6 C 89 16 142/74 H 99 04/11/16 12:00 04/11/16 12:00 04/11/16 12:00 04/11/16 12:00 04/11/16 12:00 Laboratory Results 04/11/16 05:10 04/11/16 05:10 04/10/16 04/11/16 04/12/16 05:59 05:59 05:59 Intake Total 5408 2843 Output Total 4600 3775 Balance 808 -932 PT 15.8 SEC (12.0-15.0) H 04/09/16 20:25 INR 1.26 (0.83-1.16) H 04/09/16 20:25 awake alert anicteric dry mm, op clear rrr no mrg cta b to ant exam soft nt nd no cce warm dry well perfused oriented tangential tearful anxious strenght/sensation/cn intact ICD10 Worksheet Patient Problems: Problems Problem Status Diagnosed Acute renal failure Acute Altered mental status Acute Anemia Acute Cachexia Acute Dehydration Acute Hypokalemia Acute Loss of appetite Acute
[2016-04-11] MEDS ORDERED: HEPARIN 50,000 UNIT/10 ML VIAL ONE (16:26)
[2016-04-11] MEDS ORDERED: fentaNYL 100 MCG/2 ML INJ ONE (16:46)
[2016-04-11] MEDS ORDERED: MIDAZOLAM 2 MG/2 ML VIAL ONE (16:48)
[2016-04-11] MEDS ORDERED: LIDOCAINE 1% 30 ML SDV ONE (17:58)
--- NOTE | 2016-04-11 19:35 | IR ---
Tunneled dialysis catheter placement Indication: Needs dialysis. End-stage renal disease. Informed consent: Obtained from the patient. Risks and benefits were discussed. Crosscutting Measure: Patient's current list of medications including all known prescriptions, over- the-counters, herbals, and vitamin/mineral/dietary supplements are reviewed. Medications' name, dosa ge, frequency, and route of administration are confirmed. Patient is a non-smoker. Prophylactic Antibiotic: Ancef 2 g was ordered and administered for antimicrobial prophylaxis. Discontinuation of Prophylactic Antibiotic: Prophylactic antibiotic was given within 4 hours prior t o incision. There was an order to discontinue the antibiotic within 24 hours of procedure end time. VTE Prophylaxis: VTE prophylaxis is not medically necessary for this procedure. Technique: Patient was placed in supine position. A "timeout" procedure was performed to identify t he correct patient and the correct procedure. 1% Xylocaine was used for local anesthetic. All ohogamiut ents of maximal sterile barrier technique including cap, mask, sterile gown, sterile gloves, large st erile sheet, hand hygiene, and 2% chlorhexidine for cutaneous antisepsis, followed. When ultrasound is used, sterile gel and probe covers are used. Ultrasound evaluation of potential access site was performed. After successfully identifying a patent vessel, ultrasound guidance was used to puncture the vessel. A permanent recording was created for t he patient's record. When ultrasound is used, sterile gel and probe covers are used. Under ultrasound guidance, using single wall needle, internal jugular vein was accessed. 0.035 wire w as advanced. Tract was dilated, and peel-away sheath was advanced. Tunnel was then created along the anterior chest wall with sufficient lidocaine administered. The cat heter was pulled through the tunnel, and subsequently advanced into SVC via the peel-away sheath. The sheath was then removed. Sutures were secured in place for the catheter as well as the jugular incision site. Patient tolerate d the procedure well. The lumens of the catheter were filled with appropriate volume of 5000 unit per mL heparin. Medication: 1 mg Versed, 50 mg fentanyl, 5930-9730 hours. Fluoroscopy: 0.2 minutes, 1 image Impression: Right jugular tunneled dialysis catheter placed as above.
[2016-04-11] MEDS: ACETAMINOPHEN 325 MG TAB PO PRN (19:53)
[2016-04-11] MEDS: ONDANSETRON DISINTEGRATING 4 MG TAB PO PRN (19:54)
[2016-04-12 04:49] LABS: ABSOLUTE IMMATURE GRANULOCYTES 0.11 10^3/uL (0.00-0.10); ADD DIFF? NO; ADD MORPH? NO; ADD SCAN? NO; ATYPICAL LYMPHOCYTE FLAG 0 (0-99); FRAGMENT RBC FLAG 10 (0-99); HEMOGLOBIN 8.1 g/dL (13.7-17.5); LEFT SHIFT FLG 0 (0-99); LIPEMIA HEMOLYSIS FLAG 90 (0-99); MEAN CELL HEMOGLOBIN CONCENTR. 35.2 g/dL (32.4-36.7); MEAN CELL VOLUME 85.2 fL (81.5-99.8); PLATELET CLUMPS FLAG 0 (0-99); PLATELET COUNT 354 10^3/uL (150-400)
[2016-04-12 05:04] LABS: ALANINE AMINOTRANSFERASE 37 IU/L (21-72); ALKALINE PHOSPHATASE 58 IU/L (38-126); ANION GAP 22 mEq/L (8-16); ASPARTATE AMINOTRANSFERASE 17 IU/L (17-59); BILIRUBIN,TOTAL 0.5 mg/dL (0.1-1.4); CARBON DIOXIDE 19 mEq/l (22-31); CHLORIDE 95 mEq/L (97-110); GLOMERULAR FILTRATION RATE 4; GLUCOSE 85 mg/dL (70-100); POTASSIUM 3.9 mEq/L (3.5-5.2); SODIUM 136 mEq/L (134-144); TOTAL PROTEIN 6.1 g/dL (6.3-8.2)
[2016-04-12 05:20] LABS: CREATININE 13.3 mg/dL (0.7-1.3)
[2016-04-12 05:21] LABS: CALCIUM 5.5 mg/dL (8.5-10.4)
[2016-04-12] MEDS ORDERED: PROTOCOL MAGNESIUM 1 DOSE IV PRN (05:56)
[2016-04-12] MEDS ORDERED: MAGNESIUM SULF 2 GM/WATER 50 ML IV ONE (06:06)
[2016-04-12] MEDS: CALCIUM ACETATE 667 MG CAP PO SCH ×4 (09:44→18:17)
--- NOTE | 2016-04-12 10:06 | SOAPPROG ---
SOAP Progress Note Assessment/Plan: Assessment/Plan: DEE: pt admitted with marked renal failure that is likely chronic in nature after longstanding obstruction, Cr of 21, hyperkalemic and acidemic. He may also had some prerenal DEE as well. His Cr has actually made an improvement now down to 13, continues to be nonoliguric with good UOP, K is ok and has mild metabolic acidosis at this time after replacement. He still appears uremic, still markedly azotemic but is starting to improve. - Will go forward with HD #1 today to help with his uremia and azotemia. - Will continue to monitor daily for HD needs, may or may not be ESRD at this time. - Avoid MOM, morphine, demerol, NSAIDs, contrast, aminoglycosides, fleets, and other nephrotoxins. Metabolic acidosis: improved with bicarb supplementation, will modulate further with HD today. ROBIN: Continue calcium acetate with mealsg, will continue to monitor. His high PTH implies chronic renal failure. Hypocalcemia: will help modulate with calcium in dialysate, will continue to monitor. Would not give additional supplement given his high phos until reevaluated after HD. Subjective: Pt had an episode yesterday afternoon with brief possibly seizure-like activity , pt notes that he thinks it might have been an anxiety attack. He was noted to be hypoglycemic and improved once replaced. No other acute events overnight. Pt continues to have good UOP. Objective: Vital Signs Temp Pulse Resp BP Pulse Ox 36.6 C 73 31 H 132/72 H 93 04/12/16 07:52 04/12/16 07:52 04/12/16 07:52 04/12/16 07:52 04/12/16 07:52 Laboratory Results 04/12/16 04:10 04/12/16 04:10 04/11/16 04/12/16 04/13/16 05:59 05:59 05:59 Intake Total 2843 2975 Output Total 3775 2900 Balance -932 75 PT 15.8 SEC (12.0-15.0) H 04/09/16 20:25 INR 1.26 (0.83-1.16) H 04/09/16 20:25 General: alert and oriented, no acute distress Eyes: EOMI, pERRL OP: Clear CV: RRR Resp: nonlabored respirations on NC Abd: Soft, NT/ND Ext: no edema Neuro: CN II-XII grossly intact Psych: cooperative, appropriate mood and affect Access: R IJ TC ICD10 Worksheet Patient Problems: Problems Problem Status Diagnosed Acute renal failure Acute Altered mental status Acute Anemia Acute Cachexia Acute Dehydration Acute Hypokalemia Acute Loss of appetite Acute
[2016-04-12 13:38] LABS: HEPATITIS B SURFACE ANTIBODY NEGATIVE (NEGATIVE)
--- NOTE | 2016-04-12 14:18 | HOSPPROG ---
Hospitalist Progress Note Assessment/Plan: 70 yo M with unknown PMH presenting with pradip on ckd, anemia and bilateral hydronephrosis # pradip on ckd: with BUN and creatinine finally beginning to trend down. Multifactorial and chronic with both TIDWELL and hypovolemia and improved with deluna placement and IVF. Will need HD, likely in the am. Renal following. Renally dosing meds, avoid nephrotoxins. Does continue to make good UOP. IR to place HD cath today # hyperkalemia: improved with medical mgmt, monitoring # seizure/myoclonus: patient had what appeared to be a 12 second seizure vs myoclonic activity. He states it was an "anxiety attack" and similar to bouts of anxiety he has had in the place. 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 Non focal on neuro exam, may necessitate HD sooner. # anemia: 2/2 anemia of ckd likely, monitoring and tx prn # hepatomegaly/hepatic steatosis: with long hx of etoh abuse per his report, has likely liver cyst present on abd us and at some point likely warrants abd ct w/contrast but will hold off for now given that this may not be esrd and this is not anything acute # etoh abuse: without e/o w/d, liver imaging as above # anxiety/depression: patient tearful, anxious, perseverative in his thought process. Some of this undoubtedly being driven by uremia. Will need psych eval at some point but would like his active medical issues more stable first so that it is more clear what is the primary etiology for his psych issues. # dispo: IP status, multiple active medical issues necessitating step down unit and complex decision making Care plan reviewed with renal MD. Subjective: no significant overnight events, started hd today Objective: Vital Signs Temp Pulse Resp BP Pulse Ox 36.6 C 78 15 139/74 H 97 04/12/16 12:00 04/12/16 12:00 04/12/16 12:00 04/12/16 12:00 04/12/16 12:00 Laboratory Results 04/12/16 04:10 04/12/16 04:10 04/11/16 04/12/16 04/13/16 05:59 05:59 05:59 Intake Total 2843 2975 Output Total 3775 2900 350 Balance -932 75 -350 PT 15.8 SEC (12.0-15.0) H 04/09/16 20:25 INR 1.26 (0.83-1.16) H 04/09/16 20:25 awake alert anicteric dry mm, op clear rrr no mrg cta b to ant exam soft nt nd no cce warm dry well perfused oriented tangential tearful anxious strenght/sensation/cn intact ICD10 Worksheet Patient Problems: Problems Problem Status Diagnosed Acute renal failure Acute Altered mental status Acute Anemia Acute Cachexia Acute Dehydration Acute Hypokalemia Acute Loss of appetite Acute
[2016-04-12] MEDS: ONDANSETRON 4 MG/2 ML VIAL IVP PRN (20:49)
[2016-04-13 04:20] LABS: % IMMATURE GRANULYOCYTES 0.8 % (0.0-1.1); ABSOLUTE IMMATURE GRANULOCYTES 0.08 10^3/uL (0.00-0.10); ADD DIFF? NO; ADD MORPH? NO; ADD SCAN? NO; ATYPICAL LYMPHOCYTE FLAG 0 (0-99); FRAGMENT RBC FLAG 0 (0-99); HEMATOCRIT 24.7 % (40.0-51.0); HEMOGLOBIN 8.4 g/dL (13.7-17.5); LEFT SHIFT FLG 0 (0-99); LIPEMIA HEMOLYSIS FLAG 90 (0-99); MEAN CELL VOLUME 88.2 fL (81.5-99.8); MEAN PLATELET VOLUME 9.8 fL (8.7-11.7); PLATELET CLUMPS FLAG 0 (0-99); PLATELET COUNT 276 10^3/uL (150-400); RED CELL DISTRIBUTION WIDTH 12.8 % (11.5-15.2)
[2016-04-13 04:40] LABS: ANION GAP 15 mEq/L (8-16); CALCIUM 6.5 mg/dL (8.5-10.4); CARBON DIOXIDE 21 mEq/l (22-31); CHLORIDE 99 mEq/L (97-110); GLOMERULAR FILTRATION RATE 6; GLUCOSE 97 mg/dL (70-100); MAGNESIUM 1.4 mg/dL (1.6-2.3); POTASSIUM 3.9 mEq/L (3.5-5.2); SODIUM 135 mEq/L (134-144)
[2016-04-13 04:55] LABS: CREATININE 9.3 mg/dL (0.7-1.3)
[2016-04-13] MEDS ORDERED: MAGNESIUM SULF 2 GM/WATER 50 ML IV ONE (04:58)
[2016-04-13] MEDS: CALCIUM ACETATE 667 MG CAP PO SCH ×3 (08:31→17:58)
--- NOTE | 2016-04-13 09:37 | SOAPPROG ---
SOAP Progress Note Assessment/Plan: Assessment: 1. Renal fx. Obstructive, appears to be due to TIDWELL. P:C 2 g. SIFE negative. Good UOP with deluna catheter. Creat did improve some on own from Mon-. Hold dialysis tomorrow, watch for any recovery. If none, next HD Monday and will need to coordinate outpatient dialysis, either as acute pt or possibly ESRD. Appears to have postobstructive diuresis. Volume status looks ok. Will d/c 1/2 NS to avoid driving diuresis, encourage po intake. 2. TIDWELL. Most likely d/t BPH. Needs prostate exam. PSA normal at 3.1. Please consult urology to establish care in hospital. Will start him on flomax and finasteride empirically for now. Leave deluna in place. 3. Hyperphosphatemia. Continue phoslo qac. Plan: 04/13/16 09:32 04/13/16 09:34 04/13/16 09:37 04/13/16 09:39 04/13/16 09:41 04/13/16 09:42 Subjective: No complaints. Had dialysis yesterday. Went well. Very nervous about kidneys. Objective: Vital Signs Temp Pulse Resp BP Pulse Ox 36.4 C 71 12 120/67 98 04/13/16 07:57 04/13/16 07:57 04/13/16 07:57 04/13/16 07:57 04/13/16 07:57 Laboratory Results 04/13/16 04:10 04/13/16 04:10 04/12/16 04/13/16 04/14/16 05:59 05:59 05:59 Intake Total 2975 3179 Output Total 2900 2650 Balance 75 529 PT 15.8 SEC (12.0-15.0) H 04/09/16 20:25 INR 1.26 (0.83-1.16) H 04/09/16 20:25 Thin, comfortable wm, in bed RRR, no m/g/r CTAB Abdom soft, nt No LE edema ICD10 Worksheet Patient Problems: Problems Problem Status Diagnosed Acute renal failure Acute Altered mental status Acute Anemia Acute Cachexia Acute Dehydration Acute Hypokalemia Acute Loss of appetite Acute
[2016-04-13] MEDS ORDERED: TAMSULOSIN HCL 0.4 MG CAP PO SCH (10:00)
[2016-04-13] MEDS: TAMSULOSIN HCL 0.4 MG CAP PO SCH (12:13)
[2016-04-13 13:48] LABS: HEPATITIS Bs Ab QUANT <5.0 mIU/mL (())
[2016-04-13 13:55] LABS: COLOR PALE YELLOW; LEUKOCYTE ESTERASE,URINE 2+ (NEGATIVE); NITRITE,URINE NEGATIVE (NEGATIVE)
[2016-04-13 14:04] LABS: BACTERIA TRACE /hpf (NONE SEEN); MUCUS TRACE /lpf (NONE-1+); RBC,URINE 50-182 /hpf (0-3)
--- NOTE | 2016-04-13 15:22 | HOSPPROG ---
Hospitalist Progress Note Assessment/Plan: 70 yo M with unknown PMH presenting with pradip on ckd, anemia and bilateral hydronephrosis # pradip on ckd: with BUN and creatinine finally beginning to trend down. Multifactorial and chronic with both TIDWELL and hypovolemia and improved with deluna placement and IVF. Continues to have good uop. Reviewed with renal. # TIDWELL: deluna in place, will need urology consult prior to dc, started on finasteride and tamsulosin # hyperkalemia: improved with medical mgmt, monitoring # seizure/myoclonus/anxiety attack: unclear what this event was but has not recurred. Possibly related to uremia. # anemia: 2/2 anemia of ckd likely, monitoring and tx prn # hepatomegaly/hepatic steatosis: with long hx of etoh abuse per his report, has likely liver cyst present on abd us and at some point likely warrants abd ct w/contrast but will hold off for now given that this may not be esrd and this is not anything acute # etoh abuse: without e/o w/d, liver imaging as above # anxiety/depression: patient tearful, anxious, perseverative in his thought process. Some of this undoubtedly being driven by uremia. Will need psych eval at some point but would like his active medical issues more stable first so that it is more clear what is the primary etiology for his psych issues. # dispo: IP status, multiple active medical issues necessitating step down unit and complex decision making Care plan reviewed with renal MD. Subjective: no significant overnight events, patient currently feeling better, he is anxious about his dc plans as he is basically homeless Objective: Vital Signs Temp Pulse Resp BP Pulse Ox 36.4 C 82 14 110/59 L 97 04/13/16 11:33 04/13/16 11:33 04/13/16 11:33 04/13/16 11:33 04/13/16 11:33 Laboratory Results 04/13/16 04:10 04/13/16 04:10 04/12/16 04/13/16 04/14/16 05:59 05:59 05:59 Intake Total 2975 3179 Output Total 2900 2650 Balance 75 529 PT 15.8 SEC (12.0-15.0) H 04/09/16 20:25 INR 1.26 (0.83-1.16) H 04/09/16 20:25 awake alert anicteric dry mm, op clear rrr no mrg cta b to ant exam soft nt nd no cce warm dry well perfused oriented tangential tearful anxious strenght/sensation/cn intact ICD10 Worksheet Patient Problems: Problems Problem Status Diagnosed Acute renal failure Acute Altered mental status Acute Anemia Acute Cachexia Acute Dehydration Acute Hypokalemia Acute Loss of appetite Acute
[2016-04-13] MEDS: 1/2 NS 1,000 ML IV SCH (16:10)
[2016-04-13] MEDS: ONDANSETRON DISINTEGRATING 4 MG TAB PO PRN (17:58)
[2016-04-14 05:32] LABS: % IMMATURE GRANULYOCYTES 1.1 % (0.0-1.1); ABSOLUTE IMMATURE GRANULOCYTES 0.12 10^3/uL (0.00-0.10); ADD DIFF? NO; ADD MORPH? NO; ADD SCAN? NO; ATYPICAL LYMPHOCYTE FLAG 0 (0-99); FRAGMENT RBC FLAG 10 (0-99); HEMATOCRIT 27.1 % (40.0-51.0); HEMOGLOBIN 9.4 g/dL (13.7-17.5); LEFT SHIFT FLG 0 (0-99); LIPEMIA HEMOLYSIS FLAG 90 (0-99); MEAN CELL HEMOGLOBIN 30.4 pg (27.9-34.1); MEAN CELL HEMOGLOBIN CONCENTR. 34.7 g/dL (32.4-36.7); MEAN CELL VOLUME 87.7 fL (81.5-99.8); MEAN PLATELET VOLUME 10.2 fL (8.7-11.7); PLATELET CLUMPS FLAG 0 (0-99); PLATELET COUNT 366 10^3/uL (150-400); RED BLOOD CELL COUNT 3.09 10^6/uL (4.40-6.38); RED CELL DISTRIBUTION WIDTH 12.6 % (11.5-15.2)
[2016-04-14 05:55] LABS: ANION GAP 16 mEq/L (8-16); CALCIUM 7.4 mg/dL (8.5-10.4); CARBON DIOXIDE 21 mEq/l (22-31); CHLORIDE 93 mEq/L (97-110); GLOMERULAR FILTRATION RATE 5; GLUCOSE 114 mg/dL (70-100); MAGNESIUM 2.1 mg/dL (1.6-2.3); POTASSIUM 4.7 mEq/L (3.5-5.2); SODIUM 130 mEq/L (134-144)
[2016-04-14 06:07] LABS: CREATININE 9.7 mg/dL (0.7-1.3)
[2016-04-14] MEDS: FINASTERIDE 5 MG TAB PO SCH (09:23)
[2016-04-14] MEDS: CALCIUM ACETATE 667 MG CAP PO SCH ×3 (09:23→17:49)
[2016-04-14] MEDS: TAMSULOSIN HCL 0.4 MG CAP PO SCH (09:24)
--- NOTE | 2016-04-14 10:02 | SOAPPROG ---
HERBIE Progress Note Assessment/Plan: Assessment:Plan: Renal-ARF -could be ESRD -no evidence of recovery -would plan for outpatient acute dialysis in [place] -given the complexity of his medical and psychiatric issues, I think this would provide the best medical support while managing his renal failure Access-has tunneled catheter Psychiatric-states he has depression and anxiety -started having myoclonic jerking of his UE's without impairment of speech or cognition -this appears to be somatization of his anxiety, but I would defer to specialists in this area Dispo-discussed with conservation planner 04/14/16 09:59 Subjective: no new issues overnite Objective: Vital Signs Temp Pulse Resp BP Pulse Ox 36.9 C 90 18 148/72 H 95 04/14/16 08:39 04/14/16 08:39 04/14/16 08:39 04/14/16 08:39 04/14/16 08:39 Laboratory Results 04/14/16 04:45 04/14/16 04:45 04/13/16 04/14/16 04/15/16 05:59 05:59 05:59 Intake Total 3179 2534 Output Total 2650 2675 Balance 529 -141 PT 15.8 SEC (12.0-15.0) H 04/09/16 20:25 INR 1.26 (0.83-1.16) H 04/09/16 20:25 Physical Exam - Physical Exam General Appearance: alert, no apparent distress, thin EENT: normal ENT inspection Neck: normal inspection Respiratory: lungs clear, normal breath sounds, No respiratory distress Cardiac/Chest: regular rate, rhythm, No diastolic murmur, No systolic murmur Abdomen: normal bowel sounds, non-tender, soft Extremities: No swelling ICD10 Worksheet Patient Problems: Problems Problem Status Diagnosed Acute renal failure Acute Altered mental status Acute Anemia Acute Cachexia Acute Dehydration Acute Hypokalemia Acute Loss of appetite Acute
--- NOTE | 2016-04-14 15:42 | HOSPPROG ---
Hospitalist Progress Note Assessment/Plan: 70 yo M with unknown PMH presenting with pradip on ckd, anemia and bilateral hydronephrosis # pradip on ckd: Multifactorial and chronic with both TIDWELL and hypovolemia and improved with deluna placement and IVF. Continues to have good uop. Continue with HD for now, ultimate recovery unclear # TIDWELL: deluna in place, will need urology consult prior to dc, started on finasteride and tamsulosin # hyperkalemia: improved with medical mgmt, monitoring # seizure/myoclonus/anxiety attack: unclear what this event was but has not recurred. Possibly related to uremia. # anemia: 2/2 anemia of ckd likely, monitoring and tx prn # hepatomegaly/hepatic steatosis: with long hx of etoh abuse per his report, has likely liver cyst present on abd us and at some point likely warrants abd ct w/contrast but will hold off for now given that this may not be esrd and this is not anything acute # etoh abuse: without e/o w/d, liver imaging as above, in remission # anxiety/depression: patient tearful, anxious, perseverative in his thought process. Much improved since uremia improved. Benefiting from spiritual care. # dispo: IP status, multiple active medical issues necessitating step down unit and complex decision making Subjective: no significant overnight evetns, patient happy that he has had more contact with his family since getting sick Objective: Vital Signs Temp Pulse Resp BP Pulse Ox 36.9 C 98 18 126/72 H 99 04/14/16 11:58 04/14/16 11:58 04/14/16 11:58 04/14/16 11:58 04/14/16 11:58 Laboratory Results 04/14/16 04:45 04/14/16 04:45 04/13/16 04/14/16 04/15/16 05:59 05:59 05:59 Intake Total 3179 2534 Output Total 2650 2675 Balance 529 -141 PT 15.8 SEC (12.0-15.0) H 04/09/16 20:25 INR 1.26 (0.83-1.16) H 04/09/16 20:25 awake alert anicteric dry mm, op clear rrr no mrg cta b to ant exam soft nt nd no cce warm dry well perfused oriented tangential tearful anxious strenght/sensation/cn intact ICD10 Worksheet Patient Problems: Problems Problem Status Diagnosed Acute renal failure Acute Altered mental status Acute Anemia Acute Cachexia Acute Dehydration Acute Hypokalemia Acute Loss of appetite Acute
[2016-04-15 05:22] LABS: % IMMATURE GRANULYOCYTES 1.2 % (0.0-1.1); ABSOLUTE IMMATURE GRANULOCYTES 0.12 10^3/uL (0.00-0.10); ADD DIFF? NO; ADD MORPH? NO; ADD SCAN? NO; ATYPICAL LYMPHOCYTE FLAG 0 (0-99); FRAGMENT RBC FLAG 0 (0-99); HEMOGLOBIN 8.9 g/dL (13.7-17.5); LEFT SHIFT FLG 10 (0-99); LIPEMIA HEMOLYSIS FLAG 90 (0-99); MEAN CELL HEMOGLOBIN 29.9 pg (27.9-34.1); MEAN CELL HEMOGLOBIN CONCENTR. 34.2 g/dL (32.4-36.7); MEAN CELL VOLUME 87.2 fL (81.5-99.8); MEAN PLATELET VOLUME 9.6 fL (8.7-11.7); PLATELET CLUMPS FLAG 10 (0-99); PLATELET COUNT 311 10^3/uL (150-400); RED BLOOD CELL COUNT 2.98 10^6/uL (4.40-6.38); RED CELL DISTRIBUTION WIDTH 12.4 % (11.5-15.2)
[2016-04-15 05:32] LABS: ANION GAP 16 mEq/L (8-16); CALCIUM 7.7 mg/dL (8.5-10.4); CARBON DIOXIDE 21 mEq/l (22-31); CHLORIDE 94 mEq/L (97-110); GLOMERULAR FILTRATION RATE 6; GLUCOSE 100 mg/dL (70-100); POTASSIUM 4.9 mEq/L (3.5-5.2); SODIUM 131 mEq/L (134-144)
--- NOTE | 2016-04-15 09:06 | HOSPPROG ---
Hospitalist Progress Note Assessment/Plan: Patient is a 70-year-old male presented to the emergency room with nausea and vomiting on April 09. Today is my 1st encounter with the patient. Reviewed his history with Dr. Denis/Chart reviewed. # pradip on ckd: * Creatinine is at 9 today * chronic bladder outlet obstruction * HD * has good urine output #. TIDWELL * deluna in place * ultrasound shows severe bilateral hydronephrosis * on finasteride and Flomax #. constipation * hasn't had a bowel mvmt in many days * will intiate protocol/ avoid any nephrotoxic meds ( NO MOM) #. severe bilateral hydronephrosis will get a repeat ultrasound today urology to evaluate #. metabolic acidosis * much improved during his stay #. Hyperkalemia * resolved #. Hyponatremia * mild/will follow #. hypocalcemia * on PhosLo #. anemia * secondary to chronic kidney disease # seizure/myoclonus/anxiety attack: unclear what this event was but has not recurred. * probably from uremia # hepatomegaly/hepatic steatosis: * long hx of etoh abuse per his report * has likely liver cyst present on abd us and at some point likely warrants abd ct w/contrast but will hold off for now given that this may not be esrd and this is not anything acute # etoh abuse: without e/o w/d, liver imaging as above, in remission # anxiety/depression * continues to be tearful about his health/ worried about dialysis # dispo: IP status, multiple active medical issues Subjective: Jatin has no complaints, but is tearful about his health. Objective: Vital Signs Temp Pulse Resp BP Pulse Ox 36.5 C 92 18 104/75 94 04/15/16 03:57 04/15/16 03:57 04/15/16 03:57 04/15/16 03:57 04/15/16 03:57 Laboratory Results 04/15/16 05:10 04/15/16 05:10 04/14/16 04/15/16 04/16/16 05:59 05:59 05:59 Intake Total 2534 600 Output Total 2675 625 Balance -141 -25 PT 15.8 SEC (12.0-15.0) H 04/09/16 20:25 INR 1.26 (0.83-1.16) H 04/09/16 20:25 - Physical Exam Constitutional: not in pain, chronically ill appearing, other (thin) Eyes: PERRL Ears, Nose, Mouth, Throat: hearing normal Cardiovascular: regular rate and rhythym Respiratory: no respiratory distress Gastrointestinal: normoactive bowel sounds Skin: warm Musculoskeletal: no muscle tenderness Neurologic: AAOx3 Psychiatric: interacting appropriately, anxious ICD10 Worksheet Patient Problems: Problems Problem Status Diagnosed Acute renal failure Acute Altered mental status Acute Anemia Acute Cachexia Acute Dehydration Acute Hypokalemia Acute Loss of appetite Acute
--- NOTE | 2016-04-15 10:17 | SOAPPROG ---
SOAP Progress Note Assessment/Plan: Assessment/Plan: DEE: pt admitted with marked renal failure that is likely chronic in nature after longstanding obstruction, Cr of 21, hyperkalemic and acidemic. He may also had some prerenal DEE as well. His Cr has made some improvements even before initiating HD but still quite azotemic. HD done on Monday and then held , Cr initially seemed to be uptrenidng but was down to 9.0 today, BUN still climbing and noted that his UOP decreased substantially from being 2-3L daily to 625ml in past 24 hours. Unclear to what degree he will recovery, still likely that he has ESRD. - Will do HD today. - Will continue to monitor HD needs daily. - Avoid MOM, morphine, demerol, NSAIDs, contrast, aminoglycosides, fleets, and other nephrotoxins. Metabolic acidosis: stable at 21, modulating with HD. ROBIN: Continue calcium acetate with meals, will continue to monitor. His high PTH implies chronic renal failure. TIDWELL: now on finasteride and Flomax. Please consult Urology to see pt as inpatient. Subjective: No acute events overnight. Pt notes that he felt like he had a panic attack last night but was reassured that he might still heal. He feels overwhelmed by all the changes coming from this hospitalization. Objective: Vital Signs Temp Pulse Resp BP Pulse Ox 36.5 C 92 18 104/75 94 04/15/16 03:57 04/15/16 03:57 04/15/16 03:57 04/15/16 03:57 04/15/16 03:57 Laboratory Results 04/15/16 05:10 04/15/16 05:10 04/14/16 04/15/16 04/16/16 05:59 05:59 05:59 Intake Total 2534 600 Output Total 2675 625 Balance -141 -25 PT 15.8 SEC (12.0-15.0) H 04/09/16 20:25 INR 1.26 (0.83-1.16) H 04/09/16 20:25 General: alert and oriented, no acute distress Eyes: EOMI, PERRL OP: Clear CV: RRR Resp: CTA bilat, nonlabored respirations Abd; Soft, NT/ND Ext: no edema BLE Neuro: CN II-XII grossly intact, no asterixis Psych: cooperative, appropriate mood and affect Access: ROBERTO LEWIS ICD10 Worksheet Patient Problems: Problems Problem Status Diagnosed Acute renal failure Acute Altered mental status Acute Anemia Acute Cachexia Acute Dehydration Acute Hypokalemia Acute Loss of appetite Acute
[2016-04-15] MEDS: CALCIUM ACETATE 667 MG CAP PO SCH ×3 (12:24→21:23)
[2016-04-15] MEDS ORDERED: BISACODYL 10 MG SUPP PR PRN (13:00)
[2016-04-15] MEDS: FINASTERIDE 5 MG TAB PO SCH (13:28)
[2016-04-15] MEDS: TAMSULOSIN HCL 0.4 MG CAP PO SCH (13:28)
--- NOTE | 2016-04-15 16:05 | GCON ---
[f rep st] CONSULTATION DATE OF CONSULTATION: 04/15/2016 REASON FOR CONSULT: Urinary retention, bilateral hydronephrosis, acute on chronic kidney disease. HISTORY OF PRESENT ILLNESS: This is a 70-year-old man who was evaluated in the emergency room with weight loss, weakness, nausea, vomiting. Upon further evaluation, it was found that the patient had, among other issues, acute kidney injury on chronic kidney disease with an initial creatinine level of 20, along with bilateral hydronephrosis and urinary retention. The patient had a Alba catheter placed. He has also had dialysis and creatinine level has decreased significantly but remains elevated at 9, along with hyperkalemia, seizures, alcohol abuse, anxiety, depression, hepatomegaly, hepatic stenosis and anemia. The patient reports that urologically he self-diagnosed himself with prostate cancer approximately 4 years ago when he had pain in the rectum and gross hematuria. Upon focusing on his spiritual care and improving his diet, he was able to alleviate his pain symptoms along with his gross hematuria. He was never formally evaluated by a urologist and has not had a formal diagnosis of prostate cancer. PAST MEDICAL HISTORY: Includes BPH, former alcohol abuse. SOCIAL HISTORY: Former psychiatrist. He is and has a history of 30 years tobacco use, quit in his 40s. No alcohol use in the last 20 years. Patient is with son in room. FAMILY HISTORY: Father had colorectal cancer and leukemia. Sister had leukemia. ALLERGIES: No known drug allergies. MEDICATIONS: See medication list. PHYSICAL EXAM: VITAL SIGNS: Blood pressure 134/72, heart rate 99, respiration rate 17, O2 of 95 on room air, temperature 36.7. GENERAL: This is a well- developed, well-nourished male, in no acute distress. HEENT: Normocephalic, atraumatic. Extraocular movements are intact. NECK: Supple. No lymphadenopathy. Dental hygiene is poor with missing teeth. NECK: Supple. No lymphadenopathy. Trachea midline. RESPIRATORY: No accessory respiratory muscle use. CARDIAC: Regular rate and rhythm. Mild lower extremity edema. GI : Abdomen is soft, nondistended, nontender to palpation at time of exam. No masses. Normal bowel sounds. : No CVA tenderness. No bladder distention. Alba catheter in place draining yellow urine in the bag without obvious bladder clots. INTEGUMENT: No obvious rashes or lesions, although the patient is mildly pale in appearance. MUSCULOSKELETAL: Patient was examined while sitting, but able to move upper extremities without difficulty. NEURO: Patient is alert, oriented. Affect appropriate to situation. LABS: White blood cell count 9.9, hemoglobin 8.9, hematocrit 26, platelets 311. Chemistry: Sodium 131, potassium 4.9, chloride 94, carbon dioxide 21, BUN 132, creatinine 9.0, down from 21, glucose 100, calcium 7.7, phosphorus 4.8. PSA was drawn and is 3.11. Microbiology: Patient does have a Staph aureus infection in the urine. Reports I examined: I reviewed his renal ultrasound myself which showed bilateral severe hydronephrosis. ASSESSMENT AND PLAN: Acute on chronic kidney disease, hydronephrosis, urinary retention. I have reviewed his case with Dr. Wallis. At this point, we recommend the patient have a repeat renal ultrasound, and if it shows persistent hydronephrosis, he will have bilateral nephrostomy tubes placed. I discussed with the patient that I recommend that the Alba catheter remain in place for the time being until he can be better evaluated with a formal analysis of urodynamics and cystoscopy at some point in the future as an outpatient. We will also recommend doing a prostate exam again when patient is more mobile as an outpatient, although the prostate cancer does seem less likely at this point based upon PSA. Plan was discussed with the patient and son, along with Dr. Wallis, and personally with Dr. Aleman. /[id number]/MODL MTDD
--- NOTE | 2016-04-15 17:19 | US ---
Complete Retroperitoneal Ultrasound Indication: 70-year-old patient admitted for renal failure, Creatinine in the 20s, currently on dialy sis, found to have bilateral hydronephrosis. His creatinine now is down to 9. His urine is clearing from white count and right blood cells, his wh ite blood count systemically is improving. Bilateral percutaneous nephrostomy tube was initially orde red by urology. Upon further review of patient's medical records, I suggested repeating the retroperi toneal ultrasound to assess hydronephrosis, since patient has had a Alba catheter in place. The caus e of the hydronephrosis was thought to be bladder outlet obstruction from prostate enlargement. Technique: Complete retroperitoneal ultrasound was performed. Findings: Right kidney measures 10.8 x 5.2 x 3.6 cm. Compared to April 09 and April 10, there has been significant interval improvement in the degree of hydronephrosis. There still is hydronephr osis remaining, mild to moderate. The cortex currently measures 9 mm, whereas on the previous ultraso und it measured 3 mm. Mildly dilated ureter can be seen. No mass. Left kidney measures 10.9 x 5.6 x 4.5 cm. Cortex today measures 1.3 cm, compared to the previous 0.6 cm. The hydronephrosis is again still present, mild to moderate, but definitively much better. There is an incidental simple renal cyst at the inferior pole of the left kidney. Alba catheter decompresses the bladder completely, therefore, ureteral jet is not evaluated. There i s significant circumferential bladder wall thickening today however that was previously not seen. Impression: 1. Significant interval improvement in degree of hydronephrosis, with subsequent significant increase in thickness of the renal parenchymal tissue bilaterally as above detailed. 2. Alba catheter is decompressing the bladder. I believe this Alba is at this point sufficient in i mproving his renal failure caused by obstruction. 3. 12-22 mm thickness of the bladder wall that is circumferential, new since prior ultrasound. Signif icance is unclear. 4. Ureteral jet is therefore not evaluated. 5. Mild to moderate hydronephrosis remaining in both kidneys. Comment: I have discussed the above findings with Dr. Tj Wallis. I believe that if we did another r epeat ultrasound in 5 days, his hydronephrosis would be mostly resolved. If it is not, with the prese nce of a Alba catheter in place, I am not sure bilateral percutaneous nephrostomy tubes would have m mary much else of a difference, especially when it comes to further decreasing his creatinine level. Travis Wallsi agreed with the above, and is ordering a follow up outpatient complete retroperitoneal ultrasound in 5 days. We can always perform bilateral percutaneous nephrostomy tubes, if the patient 's clinical situation changes.
[2016-04-15] MEDS ORDERED: HEPARIN 50,000 UNIT/10 ML VIAL ONE (20:41)
[2016-04-15] MEDS: SENNOSIDES/DOCUSATE SODIUM TAB PO SCH (22:11)
[2016-04-15] MEDS: POLYETHYLENE GLYCOL 3350 17 GM PKT PO PRN (22:12)
[2016-04-16 06:12] LABS: ANION GAP 11 mEq/L (8-16); CALCIUM 7.6 mg/dL (8.5-10.4); CARBON DIOXIDE 25 mEq/l (22-31); CHLORIDE 97 mEq/L (97-110); CREATININE 6.2 mg/dL (0.7-1.3); GLOMERULAR FILTRATION RATE 9; GLUCOSE 108 mg/dL (70-100); POTASSIUM 4.8 mEq/L (3.5-5.2); SODIUM 133 mEq/L (134-144)
[2016-04-16] MEDS: FINASTERIDE 5 MG TAB PO SCH (08:19)
[2016-04-16] MEDS: SENNOSIDES/DOCUSATE SODIUM TAB PO SCH ×2 (08:19→20:09)
[2016-04-16] MEDS: CALCIUM ACETATE 667 MG CAP PO SCH ×3 (08:20→18:40)
[2016-04-16] MEDS: TAMSULOSIN HCL 0.4 MG CAP PO SCH (08:20)
--- NOTE | 2016-04-16 10:33 | SOAPPROG ---
HERBIE Progress Note Assessment/Plan: Assessment: Hydronephrosis Acute After discussion with IR yesterday the plan is repeat renal sonogram Monday and assess if the hydronephrosis continues to resolve by radiologists account and assessment of images. Plan: continue present care 04/16/16 10:31 Subjective: no visited, reviewed chart and results Objective: Vital Signs Temp Pulse Resp BP Pulse Ox 36.4 C 78 16 128/76 H 96 04/16/16 08:51 04/16/16 08:51 04/16/16 08:51 04/16/16 08:51 04/16/16 08:51 Laboratory Results 04/15/16 05:10 04/16/16 05:41 04/15/16 04/16/16 04/17/16 05:59 05:59 05:59 Intake Total 600 2788 Output Total 625 1000 Balance -25 1788 PT 15.8 SEC (12.0-15.0) H 04/09/16 20:25 INR 1.26 (0.83-1.16) H 04/09/16 20:25 ICD10 Worksheet Patient Problems: Problems Problem Status Diagnosed Acute renal failure Acute Altered mental status Acute Anemia Acute Cachexia Acute Dehydration Acute Hydronephrosis Acute Hypokalemia Acute Loss of appetite Acute - ICD10 Problem Qualifiers (1) Hydronephrosis
[2016-04-16] MEDS: 1/2 NS 1,000 ML IV SCH (11:05)
--- NOTE | 2016-04-16 17:17 | HOSPPROG ---
Hospitalist Progress Note Assessment/Plan: Patient is a 70-year-old male presented to the emergency room with nausea and vomiting on April 09. # pradip on ckd: * Creatinine is at 6 today (starting to improve) * chronic bladder outlet obstruction * HD yesterday * has good urine output #. TIDWELL * deluna in place * ultrasound shows improvement * on finasteride and Flomax #. constipation * hasn't had a bowel mvmt in many days * will intiate protocol/ avoid any nephrotoxic meds ( NO MOM) #. severe bilateral hydronephrosis appreciate urology patient will need an eventual cystoscopy will need another ultrasound #. metabolic acidosis * much improved during his stay #. Hyperkalemia * resolved #. Hyponatremia * mild/will follow #. hypocalcemia * on PhosLo #. anemia * secondary to chronic kidney disease # seizure/myoclonus/anxiety attack: unclear what this event was but has not recurred. * probably from uremia # hepatomegaly/hepatic steatosis: * long hx of etoh abuse per his report * has likely liver cyst present on abd us and at some point likely warrants abd ct w/contrast but will hold off for now given that this may not be esrd and this is not anything acute # etoh abuse: without e/o w/d, liver imaging as above, in remission # anxiety/depression * more hopeful today # dispo: IP status, multiple active medical issues Plan: will ask nephrology if he needs continued fluids/ would like him to ambulate more/ reviewed his care w PT/ they are recommending a SNF/he is very weak/repeat labs in a.m. Subjective: Jatin is feeling more hopeful today. Objective: Vital Signs Temp Pulse Resp BP Pulse Ox 36.8 C 73 18 119/76 97 04/16/16 12:00 04/16/16 12:00 04/16/16 12:00 04/16/16 12:00 04/16/16 12:00 Laboratory Results 04/15/16 05:10 04/16/16 05:41 04/15/16 04/16/16 04/17/16 05:59 05:59 05:59 Intake Total 600 2788 Output Total 625 1000 1075 Balance -25 1788 -1075 PT 15.8 SEC (12.0-15.0) H 04/09/16 20:25 INR 1.26 (0.83-1.16) H 04/09/16 20:25 - Physical Exam Constitutional: appears nourished, not in pain, chronically ill appearing Eyes: PERRL Ears, Nose, Mouth, Throat: hearing normal Cardiovascular: regular rate and rhythym Respiratory: no respiratory distress Gastrointestinal: normoactive bowel sounds Genitourinary: deluna in urethra Skin: warm Musculoskeletal: generalized weakness Neurologic: AAOx3 Psychiatric: interacting appropriately, not encephalopathic, thought process linear ICD10 Worksheet Patient Problems: Problems Problem Status Diagnosed Acute renal failure Acute Altered mental status Acute Anemia Acute Cachexia Acute Dehydration Acute Hydronephrosis Acute Hypokalemia Acute Loss of appetite Acute
--- NOTE | 2016-04-16 18:13 | SOAPPROG ---
SOAP Progress Note Assessment/Plan: Assessment: 1. arf: is likely esrd. Dialyzed twice (04/12, 04/15), creat down mainly due to this. Will see what bun/creat are tomorrow but if increasing would plan on chronic hd. I believe admission process has been initiated at [facility]. Will d/c ivf as he is taking adequate po. 2. urinary retention, obstruction: Alba in place, repeat u/s with sig decrease in hydro therefore pcn's not pursued. Plan: 04/16/16 18:07 Subjective: Dialyzed uneventfully yesterday. Taking po without any sig issue. Feeling much better than on admit. Objective: Vital Signs Temp Pulse Resp BP Pulse Ox 37.1 C 94 14 128/76 H 92 04/16/16 16:00 04/16/16 16:00 04/16/16 16:00 04/16/16 16:00 04/16/16 16:00 Laboratory Results 04/15/16 05:10 04/16/16 05:41 04/15/16 04/16/16 04/17/16 05:59 05:59 05:59 Intake Total 600 2788 Output Total 625 1000 1075 Balance -25 1788 -1075 PT 15.8 SEC (12.0-15.0) H 04/09/16 20:25 INR 1.26 (0.83-1.16) H 04/09/16 20:25 Physical Exam - Physical Exam General Appearance: no apparent distress Respiratory: lungs clear Cardiac/Chest: regular rate, rhythm Extremities: pedal edema (none) ICD10 Worksheet Patient Problems: Problems Problem Status Diagnosed Acute renal failure Acute Altered mental status Acute Anemia Acute Cachexia Acute Dehydration Acute Hydronephrosis Acute Hypokalemia Acute Loss of appetite Acute
[2016-04-16] MEDS: POLYETHYLENE GLYCOL 3350 17 GM PKT PO PRN (20:08)
[2016-04-17 05:43] LABS: ANION GAP 12 mEq/L (8-16); CARBON DIOXIDE 23 mEq/l (22-31); CHLORIDE 96 mEq/L (97-110); CREATININE 6.4 mg/dL (0.7-1.3); GLOMERULAR FILTRATION RATE 9; GLUCOSE 103 mg/dL (70-100); POTASSIUM 5.1 mEq/L (3.5-5.2); SODIUM 131 mEq/L (134-144)
[2016-04-17] MEDS: SENNOSIDES/DOCUSATE SODIUM TAB PO SCH ×2 (08:51→20:54)
[2016-04-17] MEDS: FINASTERIDE 5 MG TAB PO SCH (08:51)
[2016-04-17] MEDS: TAMSULOSIN HCL 0.4 MG CAP PO SCH (08:51)
[2016-04-17] MEDS: CALCIUM ACETATE 667 MG CAP PO SCH ×3 (08:51→18:30)
--- NOTE | 2016-04-17 11:03 | WOCRNPDOC ---
RONNIE Advanced Assessment Note - Skin Integrity Problem, Advanced Assess Coccyx Pressure Injury Dressing Type: Allevyn Life Dressing Description: Clean/Dry, Intact Exudate Amount: None Exudate Characteristic(s): None Integumentary Issue Intervention: Dressing Removed Jessica Wound Tissue: Blanching, Erythema Jessica Wound Swelling: None Wound Bed Constitution: Healed (scar tissue from pilonidal cyst, now healed.) Skin Integrity Problem Comment: Received consult regarding possible pressure injury to coccyx. Upon assessment, patient has a dimple proximal to his coccyx, consistent in appearance w/ a pilonidal cyst. There is some scar tissue present , but site is presently non-fluctuant and blanching. Per his report, he had a pilonidal cyst when he "was a kid." Presently there is blanching erythema throughout his coccyx and sacrum, with intact skin. No pressure injury evident at this time. Due to the scar tissue on his coccyx, I advise protecting the site as it will always be at increased risk for breakdown. Pressure-relieving cushion and Accu-max w/ pump initiated by nursing, which is appropriate.
--- NOTE | 2016-04-17 15:57 | SOAPPROG ---
SOMAYNOR Progress Note Assessment/Plan: Assessment: 1. arf: bun/creat up today, he is likely esrd. Dialyzed twice (04/12, 04/15), will dialyze again tomorrow and then plan regular treatments. I believe admission process has been initiated at [facility] but [facility] would also be option if pt is going to snf in that vicinity. 2. urinary retention, obstruction: Alba in place, repeat u/s with sig decrease in hydro therefore pcn's not pursued. Will need definitive treatment as outpt. 3. anemia: most likely due to renal failure, will cont epo. Plan: 04/16/16 18:07 04/17/16 15:54 Subjective: No particular c/o. Objective: Vital Signs Temp Pulse Resp BP Pulse Ox 36.8 C 99 19 120/78 98 04/17/16 15:33 04/17/16 15:33 04/17/16 15:33 04/17/16 15:33 04/17/16 15:33 Laboratory Results 04/15/16 05:10 04/17/16 05:07 04/16/16 04/17/16 04/18/16 05:59 05:59 05:59 Intake Total 2788 475 Output Total 1000 2525 Balance 1788 -2050 PT 15.8 SEC (12.0-15.0) H 04/09/16 20:25 INR 1.26 (0.83-1.16) H 04/09/16 20:25 Physical Exam - Physical Exam General Appearance: no apparent distress Male Genitalia: other (Alba draining copious uo) Extremities: pedal edema (none) ICD10 Worksheet Patient Problems: Problems Problem Status Diagnosed Acute renal failure Acute Altered mental status Acute Anemia Acute Cachexia Acute Dehydration Acute Hydronephrosis Acute Hypokalemia Acute Loss of appetite Acute
--- NOTE | 2016-04-17 16:33 | HOSPPROG ---
Hospitalist Progress Note Assessment/Plan: Patient is a 70-year-old male presented to the emergency room with nausea and vomiting on April 09. Met with the patient with Dr Mayer/ reviewed his care with Dr Wallis. # pradip on ckd: * Creatinine is at 6.4 today * chronic bladder outlet obstruction * HD to be done tomorrow * has good urine output * Dr Mayer shared with the patient he will be on dialysis this week and likely permanently #. TIDWELL * deluna in place/needs to be left in on dc/ he will need to see Dr Wallis in OP setting for cystoscopy * ultrasound shows improvement * on finasteride and Flomax #. constipation * hasn't had a bowel mvmt in many days * will intiate protocol/ avoid any nephrotoxic meds ( NO MOM) #. severe bilateral hydronephrosis will need another ultrasound this week prior to dc #. metabolic acidosis * much improved during his stay #. Hyperkalemia * resolved #. Hyponatremia * mild/will follow #. hypocalcemia * on PhosLo #. anemia * secondary to chronic kidney disease # seizure/myoclonus/anxiety attack: unclear what this event was but has not recurred. * probably from uremia # hepatomegaly/hepatic steatosis: * long hx of etoh abuse per his report * has likely liver cyst present on abd us and at some point likely warrants abd ct w/contrast but will hold off for now given that this may not be esrd and this is not anything acute # etoh abuse: in remission # anxiety/depression * has no suicidal ideation # dispo: IP status, multiple active medical issues Plan: spoke with patient for 30 minutes and met with him with Dr Mayer/ looking at placement where he will get dialysis/ reviewed plan of care with Jatin. Subjective: Jatin said he is going to pray for healing/ has no c/o pain. Objective: Vital Signs Temp Pulse Resp BP Pulse Ox 36.8 C 99 19 120/78 98 04/17/16 15:33 04/17/16 15:33 04/17/16 15:33 04/17/16 15:33 04/17/16 15:33 Laboratory Results 04/15/16 05:10 04/17/16 05:07 04/16/16 04/17/16 04/18/16 05:59 05:59 05:59 Intake Total 2788 475 Output Total 1000 2525 600 Balance 1788 -2049 -600 PT 15.8 SEC (12.0-15.0) H 04/09/16 20:25 INR 1.26 (0.83-1.16) H 04/09/16 20:25 - Physical Exam Constitutional: no apparent distress, appears nourished, not in pain Eyes: PERRL Ears, Nose, Mouth, Throat: hearing normal Respiratory: no respiratory distress Genitourinary: deluna in urethra Skin: warm, normal color Musculoskeletal: generalized weakness Neurologic: AAOx3 Psychiatric: interacting appropriately, anxious ICD10 Worksheet Patient Problems: Problems Problem Status Diagnosed Acute renal failure Acute Altered mental status Acute Anemia Acute Cachexia Acute Dehydration Acute Hydronephrosis Acute Hypokalemia Acute Loss of appetite Acute
[2016-04-17] MEDS: ACETAMINOPHEN 325 MG TAB PO PRN (20:54)
[2016-04-18] MEDS: POLYETHYLENE GLYCOL 3350 17 GM PKT PO PRN (00:06)
[2016-04-18 06:04] LABS: ALBUMIN 3.2 g/dL (3.5-5.0); ANION GAP 12 mEq/L (8-16); CALCIUM 8.3 mg/dL (8.5-10.4); CARBON DIOXIDE 22 mEq/l (22-31); CHLORIDE 97 mEq/L (97-110); CREATININE 6.9 mg/dL (0.7-1.3); GLOMERULAR FILTRATION RATE 8; GLUCOSE 87 mg/dL (70-100); POTASSIUM 5.3 mEq/L (3.5-5.2); SODIUM 131 mEq/L (134-144)
--- NOTE | 2016-04-18 08:28 | SOAPPROG ---
SOAP Progress Note Assessment/Plan: Assessment: 1. New ESRD Seen on HD. Cath fx sluggish. Will try TPA. Will consult Dr. Pinedo for fistula placement. 2. TIDWELL Urology following. Continue deluna. 3. Social Will need SNF placement. 4. Anemia Stable. Plan: 04/18/16 08:23 Subjective: Doing ok. Objective: Vital Signs Temp Pulse Resp BP Pulse Ox 36.6 C 87 16 115/72 97 04/18/16 04:00 04/18/16 04:00 04/18/16 04:00 04/18/16 04:00 04/18/16 04:00 Laboratory Results 04/15/16 05:10 04/18/16 04:59 04/17/16 04/18/16 04/19/16 05:59 05:59 05:59 Intake Total 475 750 Output Total 2525 1900 Balance -205 -1150 PT 15.8 SEC (12.0-15.0) H 04/09/16 20:25 INR 1.26 (0.83-1.16) H 04/09/16 20:25 Physical Exam - Physical Exam General Appearance: no apparent distress Respiratory: lungs clear Cardiac/Chest: regular rate, rhythm Extremities: normal inspection Neuro/Psych: oriented x 3 ICD10 Worksheet Patient Problems: Problems Problem Status Diagnosed Acute renal failure Acute Altered mental status Acute Anemia Acute Cachexia Acute Dehydration Acute Hydronephrosis Acute Hypokalemia Acute Loss of appetite Acute
--- NOTE | 2016-04-18 08:51 | SOAPPROG ---
SOMAYNOR Progress Note Assessment/Plan: Assessment: Addendum -Spoke with Dr. Wallis. Per Rads, patient may have more cortex than originally thought. UO good. Will follow in house the next several days. Repeat US on Mon to look for decompression. Hold on consult for fistula for now. (At the same time, given presenting Cr level, suspect he will not recover to get off of HD). Plan: 04/18/16 08:23 04/18/16 08:49 04/18/16 08:51 Objective: Vital Signs Temp Pulse Resp BP Pulse Ox 36.6 C 87 16 115/72 97 04/18/16 04:00 04/18/16 04:00 04/18/16 04:00 04/18/16 04:00 04/18/16 04:00 Laboratory Results 04/15/16 05:10 04/18/16 04:59 04/17/16 04/18/16 04/19/16 05:59 05:59 05:59 Intake Total 475 750 Output Total 2522 1900 Balance -2050 -1150 PT 15.8 SEC (12.0-15.0) H 04/09/16 20:25 INR 1.26 (0.83-1.16) H 04/09/16 20:25 ICD10 Worksheet Patient Problems: Problems Problem Status Diagnosed Acute renal failure Acute Altered mental status Acute Anemia Acute Cachexia Acute Dehydration Acute Hydronephrosis Acute Hypokalemia Acute Loss of appetite Acute
[2016-04-18] MEDS ORDERED: ALTEPLASE 2 MG VIAL IVP ONE ×2 (09:00)
[2016-04-18] MEDS: SENNOSIDES/DOCUSATE SODIUM TAB PO SCH ×2 (10:56→20:49)
[2016-04-18] MEDS: TAMSULOSIN HCL 0.4 MG CAP PO SCH (10:57)
[2016-04-18] MEDS: FINASTERIDE 5 MG TAB PO SCH (10:57)
[2016-04-18] MEDS: CALCIUM ACETATE 667 MG CAP PO SCH ×3 (10:58→17:47)
--- NOTE | 2016-04-18 11:11 | WOCRNPDOC ---
WOCRN Advanced Assessment Note - Skin Integrity Problem, Advanced Assess Coccyx Pressure Injury Dressing Type: Allevyn Life Skin Integrity Problem Comment: No pressure injury. Blanching. Please reconsult if this changes. Will not follow.
--- NOTE | 2016-04-18 13:21 | US ---
Color Flow Duplex Venous Ultrasound Bilateral Upper Extremity For Vein Mapping History: Chronic renal failure. Dialysis patient. Findings: The right and left cephalic vein and basilic veins were mapped in both upper extremities. Measurement s as follows: Cephalic vein, proximal humerus; right, nonvisualized; left, 0.4 mm diameter, 3 mm in depth Cephalic vein mid humerus; right nonvisualized, left 0.6 mm diameter, 2.9 mm depth Cephalic vein antecubital fossa, not visualized on the right; left, 0.7 mm diameter, 1.5 mm depth Basilic vein proximal humerus; right, 4 mm diameter, 6 mm in depth; left, 3.8 mm diameter, 5.4 mm dep th Basilic vein mid humerus, right; 3.6 mm diameter, 8.3 mm depth; left, 3.1 mm diameter, 6.6 mm depth Basilic vein distal humerus; right, 2.5 mm diameter, 4.7 mm depth; left, 3.2 mm diameter, 5 mm depth The right cephalic vein is visualized in the forearm. There is a subtotal thrombus in the median cubi nadeem vein on the right that does not extend into the basilic or cephalic veins. Impression: Upper extremity venous mapping performed as detailed above.
--- NOTE | 2016-04-18 14:44 | HOSPPROG ---
Hospitalist Progress Note Assessment/Plan: Patient is a 70-year-old male presented to the emergency room with nausea and vomiting on April 09. # pradip on ckd: * Creatinine is at 6.9 today * chronic bladder outlet obstruction * HD done today * has good urine output * likely on dialysis permanently #. TIDWELL * deluna in place/needs to be left in on dc/ he will need to see Dr Wallis in OP setting for cystoscopy * ultrasound shows improvement * on finasteride and Flomax #. constipation * hasn't had a bowel mvmt in many days * on protocol/ avoid any nephrotoxic meds ( NO MOM) #. severe bilateral hydronephrosis will need another ultrasound this week prior to dc #. metabolic acidosis * much improved during his stay #. Hyperkalemia * mild #. Hyponatremia * will follow #. hypocalcemia * on PhosLo #. anemia * secondary to chronic kidney disease # seizure/myoclonus/anxiety attack: unclear what this event was but has not recurred. * probably from uremia # hepatomegaly/hepatic steatosis: * long hx of etoh abuse per his report * has likely liver cyst present on abd us and at some point likely warrants abd ct w/contrast but will hold off for now given that this may not be esrd and this is not anything acute # etoh abuse: in remission # anxiety/depression * has no suicidal ideation # dispo: IP status, multiple active medical issues Plan: will need SNF and dialysis at dc/ will likely not be dc till / repeat ultrasound on Subjective: Jatin is talking w the legal document specialist/ has no complaints. Objective: Vital Signs Temp Pulse Resp BP Pulse Ox 36.9 C 89 16 119/78 96 04/18/16 11:44 04/18/16 11:44 04/18/16 11:44 04/18/16 11:44 04/18/16 11:44 Laboratory Results 04/15/16 05:10 04/18/16 04:59 04/17/16 04/18/16 04/19/16 05:59 05:59 05:59 Intake Total 475 750 Output Total 2525 1900 Balance -2049 -115 PT 15.8 SEC (12.0-15.0) H 04/09/16 20:25 INR 1.26 (0.83-1.16) H 04/09/16 20:25 - Physical Exam Constitutional: no apparent distress, not in pain, chronically ill appearing Eyes: PERRL Ears, Nose, Mouth, Throat: hearing normal Cardiovascular: regular rate and rhythym Respiratory: no respiratory distress Gastrointestinal: normoactive bowel sounds Genitourinary: deluna in urethra Skin: warm Musculoskeletal: generalized weakness Neurologic: AAOx3 Psychiatric: interacting appropriately ICD10 Worksheet Patient Problems: Problems Problem Status Diagnosed Acute renal failure Acute Altered mental status Acute Anemia Acute Cachexia Acute Dehydration Acute Hydronephrosis Acute Hypokalemia Acute Loss of appetite Acute
[2016-04-18] MEDS ORDERED: HEPARIN 50,000 UNIT/10 ML VIAL ONE (20:13)
[2016-04-19 06:41] LABS: ALBUMIN 3.1 g/dL (3.5-5.0); ANION GAP 8 mEq/L (8-16); CARBON DIOXIDE 26 mEq/l (22-31); CHLORIDE 98 mEq/L (97-110); CREATININE 4.7 mg/dL (0.7-1.3); GLOMERULAR FILTRATION RATE 12; GLUCOSE 104 mg/dL (70-100); POTASSIUM 4.8 mEq/L (3.5-5.2); SODIUM 132 mEq/L (134-144)
[2016-04-19] MEDS: CALCIUM ACETATE 667 MG CAP PO SCH ×3 (08:32→18:17)
[2016-04-19] MEDS: TAMSULOSIN HCL 0.4 MG CAP PO SCH (08:33)
[2016-04-19] MEDS: FINASTERIDE 5 MG TAB PO SCH (08:33)
[2016-04-19] MEDS: SENNOSIDES/DOCUSATE SODIUM TAB PO SCH ×2 (08:46→20:01)
--- NOTE | 2016-04-19 09:52 | SOAPPROG ---
HERBIE Progress Note Assessment/Plan: Assessment:Plan: Renal-ARF due to obstruction -likely ESRD -no evidence of recovery -some preservation of renal cortex per imaging studies -would plan for outpatient acute dialysis at [facility] [phone] -given the complexity of his medical and psychiatric issues, I think this would provide the best medical support while managing his renal failure Access-has tunneled catheter -will need AVF if no recovery Dispo-plan for SNF 04/19/16 09:49 Subjective: feeling pretty good Objective: Vital Signs Temp Pulse Resp BP Pulse Ox 36.9 C 84 18 108/65 97 04/19/16 07:21 04/19/16 07:21 04/19/16 07:21 04/19/16 07:21 04/19/16 07:21 Laboratory Results 04/15/16 05:10 04/19/16 05:28 04/18/16 04/19/16 04/20/16 05:59 05:59 05:59 Intake Total 750 840 Output Total 1900 1100 Balance -1150 -260 PT 15.8 SEC (12.0-15.0) H 04/09/16 20:25 INR 1.26 (0.83-1.16) H 04/09/16 20:25 Physical Exam - Physical Exam General Appearance: alert, no apparent distress, thin EENT: normal ENT inspection Neck: normal inspection Respiratory: lungs clear, normal breath sounds, No respiratory distress Cardiac/Chest: regular rate, rhythm, No diastolic murmur, No systolic murmur Abdomen: normal bowel sounds, non-tender Extremities: swelling (trace edema) ICD10 Worksheet Patient Problems: Problems Problem Status Onset Acute renal failure Acute Altered mental status Acute Anemia Acute Cachexia Acute Dehydration Acute Hydronephrosis Acute Hypokalemia Acute Loss of appetite Acute
--- NOTE | 2016-04-19 15:37 | HOSPPROG ---
Hospitalist Progress Note Assessment/Plan: Patient is a 70-year-old male presented to the emergency room with nausea and vomiting on April 09. # pradip on ckd: * Creatinine is at 4.7 today * due to chronic bladder outlet obstruction * will need permanent dialysis #. TIDWELL * deluna in place/needs to be left in on dc/ he will need to see Dr Wallis in OP setting for cystoscopy * ultrasound shows improvement * on finasteride and Flomax #. constipation * on protocol/ avoid any nephrotoxic meds ( NO MOM) #. severe bilateral hydronephrosis will need another ultrasound this week prior to dc ordered for tomorrow #. metabolic acidosis * much improved during his stay #. Hyperkalemia * resolved #. Hyponatremia * will follow #. hypocalcemia * on PhosLo #. anemia * secondary to chronic kidney disease # seizure/myoclonus/anxiety attack: unclear what this event was but has not recurred. * probably from uremia # hepatomegaly/hepatic steatosis: * long hx of etoh abuse per his report * has likely liver cyst present on abd us and at some point likely warrants abd ct w/contrast but will hold off for now given that this may not be esrd and this is not anything acute # etoh abuse: in remission # anxiety/depression * has no suicidal ideation # dispo: IP status, multiple active medical issues Plan: will need SNF and dialysis at dc/ will order repeat ultrasound for tomorrow/ will need f/u with Dr Wallis in a few weeks with Dr Wallis. >30 minutes face to face talking with patient and his son, Pablo, about his plan of care. Subjective: Jatin is feeling overall well/ eating and drinking well. Objective: Vital Signs Temp Pulse Resp BP Pulse Ox 36.8 C 90 16 102/63 99 04/19/16 11:23 04/19/16 11:23 04/19/16 11:23 04/19/16 11:23 04/19/16 11:23 Laboratory Results 04/15/16 05:10 04/19/16 05:28 04/18/16 04/19/16 04/20/16 05:59 05:59 05:59 Intake Total 750 840 Output Total 1900 1100 Balance -1150 -260 PT 15.8 SEC (12.0-15.0) H 04/09/16 20:25 INR 1.26 (0.83-1.16) H 04/09/16 20:25 - Physical Exam Constitutional: no apparent distress, appears nourished, not in pain Eyes: PERRL Ears, Nose, Mouth, Throat: hearing normal Respiratory: no respiratory distress Skin: warm Musculoskeletal: generalized weakness Neurologic: AAOx3 Psychiatric: interacting appropriately, not anxious ICD10 Worksheet Patient Problems: Problems Problem Status Onset Acute renal failure Acute Altered mental status Acute Anemia Acute Cachexia Acute Dehydration Acute Hydronephrosis Acute Hypokalemia Acute Loss of appetite Acute
[2016-04-20 05:54] LABS: ALBUMIN 3.1 g/dL (3.5-5.0); ANION GAP 9 mEq/L (8-16); CALCIUM 8.2 mg/dL (8.5-10.4); CARBON DIOXIDE 25 mEq/l (22-31); CHLORIDE 95 mEq/L (97-110); CREATININE 5.2 mg/dL (0.7-1.3); GLOMERULAR FILTRATION RATE 11; GLUCOSE 106 mg/dL (70-100); POTASSIUM 4.7 mEq/L (3.5-5.2); SODIUM 129 mEq/L (134-144)
[2016-04-20] MEDS: CALCIUM ACETATE 667 MG CAP PO SCH ×3 (10:04→17:56)
--- NOTE | 2016-04-20 10:56 | SOAPPROG ---
HERBIE Progress Note Assessment/Plan: Assessment: 1. Renal failure. Most likely ESRD at this point. Has outpatient dialysis spot at [facility] starting tomorrow afternoon. Has tunneled catheter. OK to discharge any time from renal perspective. 2. TIDWELL. Likely BPH. Has deluna. On finasteride, flomax. F/u with [facility] as outpatient. 3. Anemia. Hgb 8.9. Continue aranesp as outpatient. Plan: 04/13/16 09:32 04/13/16 09:34 04/13/16 09:37 04/13/16 09:39 04/13/16 09:41 04/13/16 09:42 04/20/16 10:54 04/20/16 10:54 Subjective: Patient seen and examined on dialysis. No complaints. Objective: Vital Signs Temp Pulse Resp BP Pulse Ox 36.6 C 84 18 109/57 L 96 04/20/16 04:00 04/20/16 04:00 04/20/16 04:00 04/20/16 04:00 04/20/16 04:00 Laboratory Results 04/15/16 05:10 04/20/16 05:30 04/19/16 04/20/16 04/21/16 05:59 05:59 05:59 Intake Total 840 200 Output Total 1100 1850 Balance -260 -1650 PT 15.8 SEC (12.0-15.0) H 04/09/16 20:25 INR 1.26 (0.83-1.16) H 04/09/16 20:25 Thin, comfortable wm on dialysis RRR, no m/g/r CTAB Abdom soft, nontender No LE edema ICD10 Worksheet Patient Problems: Problems Problem Status Onset Acute renal failure Acute Cachexia Acute Dehydration Acute Loss of appetite Acute Anemia Acute Altered mental status Acute Hypokalemia Acute Hydronephrosis Acute
[2016-04-20] MEDS: FINASTERIDE 5 MG TAB PO SCH (12:23)
[2016-04-20] MEDS: TAMSULOSIN HCL 0.4 MG CAP PO SCH (12:23)
[2016-04-20] MEDS: SENNOSIDES/DOCUSATE SODIUM TAB PO SCH ×2 (12:24→19:28)
--- NOTE | 2016-04-20 13:08 | SOAPPROG ---
SOAP Progress Note Assessment/Plan: Assessment: Bilateral hydronephrosis, urinary retention, DEE Plan: Reviewed MEGHANN which shows minimal change from last MEGHANN 5 days ago. Cr has likely stabilized. Recommend deluna catheter remain in place and patient followup with us OP to discuss testing in office to determine bladder functionality. 04/20/16 13:06 Subjective: Interested in having catheter removed at some point in future Objective: Vital Signs Temp Pulse Resp BP Pulse Ox 36.6 C 84 18 109/57 L 96 04/20/16 04:00 04/20/16 04:00 04/20/16 04:00 04/20/16 04:00 04/20/16 04:00 Laboratory Results 04/15/16 05:10 04/20/16 05:30 04/19/16 04/20/16 04/21/16 05:59 05:59 05:59 Intake Total 840 200 Output Total 1100 1850 Balance -260 -1650 PT 15.8 SEC (12.0-15.0) H 04/09/16 20:25 INR 1.26 (0.83-1.16) H 04/09/16 20:25 Physical Exam - Physical Exam General Appearance: alert, no apparent distress Respiratory: normal breath sounds, No respiratory distress Skin: normal color Neuro/Psych: no motor/sensory deficits, alert, normal mood/affect ICD10 Worksheet Patient Problems: Problems Problem Status Onset Acute renal failure Acute Altered mental status Acute Anemia Acute Cachexia Acute Dehydration Acute Hydronephrosis Acute Hypokalemia Acute Loss of appetite Acute
--- NOTE | 2016-04-20 14:22 | PDIAF ---
- Diagnosis Diagnosis: Renal Failure Code Status: Full Code - Medication Management Discharge Medications: Medications to Continue on Transfer Acetaminophen [Tylenol 325mg (*)] 650 mg PO Q4HRS PRN #0 tab 04/20/16 [Last Taken Unknown] Calcium Acetate [Phoslo (*)] 2,001 mg PO TIDMEAL #0 cap 04/20/16 [Last Taken Unknown] Finasteride [Proscar 5 MG (*)] 5 mg PO DAILY #0 tab 04/20/16 [Last Taken Unknown ] Ondansetron Odt [Zofran Odt 4 mg (*)] 4 mg PO Q4HRS PRN #0 tab 04/20/16 [Last Taken Unknown] Polyethylene Glycol 3350 [Miralax 17 gm (*)] 17 gm PO DAILY PRN #0 pkt 04/20/16 [Last Taken Unknown] Sennosides/Docusate Sodium [Senokot-S] 1 - 2 tab PO BID #0 tab 04/20/16 [Last Taken Unknown] Tamsulosin HCl [Flomax 0.4 MG (*)] 0.4 mg PO DAILY #0 cap 04/20/16 [Last Taken Unknown] Discharge Medications: Refer to the Discharge Home Medication list for PRN reason. PICC Care - Routine: N/A - Orders Services needed: Registered Nurse, Physical Therapy, Occupational Therapy - Follow Up Care Current Providers and Referrals: NONE *PRIMARY CARE P,. [Primary Care Provider] - As per Instructions
--- NOTE | 2016-04-20 17:33 | GDS ---
[f rep st] DISCHARGE SUMMARY Patients discharge was cancelled on 04/20/16. He will be discharged to [facility] 04/21/16. DISCHARGE DIAGNOSES: 1. Acute kidney injury with chronic kidney disease. 2. Constipation. 3. Severe bilateral hydronephrosis. 4. Chronic bladder outlet obstruction. 5. Metabolic acidosis. 6. Hyperkalemia. 7. Hyponatremia. 8. Hypocalcemia. 9. Anemia. 10. History of seizure disorder. 11. Hepatomegaly. 12. Chronic alcohol abuse. 13. Anxiety and depression. PHYSICAL EXAM: GENERAL: The patient is alert. VITAL SIGNS: Afebrile at 36.6 , pulse is 84, respiratory rate is 18, blood pressure is 109/57. He is saturating 96% on room air. I have seen and evaluated the patient on the day of discharge. HOSPITAL COURSE: 1. The patient is a 70-year-old male, who presented to the emergency room with complaints of nausea and vomiting. He was evaluated and diagnosed with acute on chronic kidney disease. He did receive a consultation during this hospitalization from Nephrology. He required hemodialysis during this hospitalization, and a tunnelled catheter placed. He will continue to require dialysis in the outpatient setting and likely require permanent catheter placement. 2. Chronic bladder outlet obstruction. This is secondary to the patient's prostate and will require a urological evaluation in the future. A Alba catheter has been placed, and this is to remain in. He will follow up with Dr. Wallis in the outpatient setting. 3. Constipation. This has resolved. 4. Severe bilateral hydronephrosis. Repeat ultrasound demonstrates continued hydronephrosis. 5. Metabolic acidosis. This has resolved. 6. Electrolyte abnormalities. These have been replaced and resolved. 7. Anemia. This is acute on chronic secondary to the patient's chronic kidney disease and stable at the time of disposition. 8. Seizure disorder. The patient did have a seizure during this hospitalization, likely secondary to uremia. He has had no other signs of seizure activity. 9. Hepatomegaly. This needs to be followed in the outpatient setting with repeat ultrasounds. 10. History of alcohol abuse. The patient is in remission with regard to this. DISPOSITION: Patient will be discharged to a alf facility where he can continue hemodialysis and follow up with Dr. Wallis in the outpatient setting. The patient is in agreement with this plan. I reviewed the patient's disposition and plan of care with the case checker. He will be again, discharged today. DISCHARGE MEDICATIONS: Please refer to EMR form. FOLLOWUP: Will be with Dr. Wallis of Urology as well as Dr. Lehman of Nephrology. There are no pending studies. I spent greater than 35 minutes in the care, coordination, and management of this patient's disposition. /[id number]/MODL MTDD
[2016-04-20] MEDS ORDERED: HEPARIN 50,000 UNIT/10 ML VIAL ONE (19:33)
[2016-04-21 08:13] VITALS: BP 120/60; PULSE 53; RESP 16; TEMP 98.2; O2SAT 98
[2016-04-21] MEDS: FINASTERIDE 5 MG TAB PO SCH (08:23)
[2016-04-21] MEDS: TAMSULOSIN HCL 0.4 MG CAP PO SCH (08:23)
[2016-04-21] MEDS: CALCIUM ACETATE 667 MG CAP PO SCH ×2 (08:23→11:56)
[2016-04-21] MEDS: SENNOSIDES/DOCUSATE SODIUM TAB PO SCH (09:13)
--- NOTE | 2016-04-25 13:16 | PQFORM ---
PHYSICIAN QUERY FORM Needs Your Response This query form is being sent to you to assure this patient record is coded properly. Please respond to the question below: LENS EDGER QUESTION: Dear Dr. Monroy, In reviewing this patients medical chart it is documented in ER report that the patient had a diagnosis of loss of appetite and cachexia. Also, in the H&P the patient has the documented diagnosis of 'Severe malnutrition' with 'extreme weight loss, 25lbs in 1 month'. A dietary consult was ordered. After study, should the diagnosis of 'Severe malnutrition' be included in the Discharge summary? ____x__ Yes No Other more appropriate diagnosis Unable to determine Thank you GISELLE Simons HIM/Coding Dept [phone] INSTRUCTIONS FOR RESPONSE: Answer question by clicking on the "Edit Document" button. Move cursor to area below the stars. When complete, hit "Save." Click on the "Sign" button, then click "Sign" again. Type in your PIN and hit "Enter." MTDD
== END 2016-04-21 12:45 | DRG 682 ==
LOC: F2N 20:10 → F3E 04-14 21:05 → UNDODISIN 04-15 13:50
PROVIDERS: ADMIT Hospitalist; ATTEND Hospitalist
PROC: 0T9B70Z Drainage of Bladder with Drainage Device, Via Natural or Artificial Opening (ICD-10-PCS; 2016-04-09)
PROC: 30233N1 Transfusion of Nonautologous Red Blood Cells into Peripheral Vein, Percutaneous Approach (ICD-10-PCS; 2016-04-10)
PROC: 02HV33Z Insertion of Infusion Device into Superior Vena Cava, Percutaneous Approach (ICD-10-PCS; 2016-04-11)
PROC: 5A1D60Z (ICD-10-PCS; principal; 2016-04-12)
DX: N17.9 Acute kidney failure, unspecified (principal); E43 Unspecified severe protein-calorie malnutrition; E87.1 Hypo-osmolality and hyponatremia; E87.2 Acidosis; N18.6 End stage renal disease; K59.00 Constipation, unspecified; N13.30 Unspecified hydronephrosis; N32.0 Bladder-neck obstruction; E87.5 Hyperkalemia; D63.1 Anemia in chronic kidney disease; E83.51 Hypocalcemia; G40.909 Epilepsy, unspecified, not intractable, without status epilepticus; R16.0 Hepatomegaly, not elsewhere classified; F10.10 Alcohol abuse, uncomplicated; F41.8 Other specified anxiety disorders; E86.0 Dehydration; Z85.828 Personal history of other malignant neoplasm of skin; E83.39 Other disorders of phosphorus metabolism; N40.1 Benign prostatic hyperplasia with lower urinary tract symptoms; Z80.0 Family history of malignant neoplasm of digestive organs; M85.80 Other specified disorders of bone density and structure, unspecified site
CPT/HCPCS: 82947-QW; 86334-90; 86704-90; 97112-GP; 97116-GP; 97161-GP; 97165-GO; 97530-GO; 97530-GP; 97535-GO; C1750; G0103; G8978-GP-CJ; G8979-GP-CI; G8987-GO-CK; G8988-GO-CI; J0610; J0696; J1644; J1815; J2250; J2405; J2550; J2997; J3010; P9016

== ENCOUNTER 2016-07-07 08:52 | Inpatient (IN) | payer OTHER ==
--- NOTE | 2016-07-06 13:39 | GHP ---
[f rep st] PREOP HISTORY AND PHYSICAL DATE OF ADMISSION: 07/07/2016 This is a 70-year-old gentleman who has had urinary retention, and he had had an AUA score originall y of 35, and for his BPH he had been previously on Proscar and tamsulosin. At the present time he i s admitted for a transurethral resection of the prostate. He has had a prostate ultrasound that rev ealed a prostate volume of 53 g and an intravesical lobe, and multiple prostatic cysts. He has had a urodynamics test done that showed an obstructive pattern where he had had a detrusor response up t o 80 cm of water pressure but could not void. That was at a capacity of 372 mL and he has had a cys toscopy that revealed an enlarged median lobe, inflammatory polyps with marked BPH and the bladder h ad diffuse erythema with trabeculations related to his catheter. He had been offered to have a PSA and he had declined on that. At the present time he is admitted for transurethral resection of the prostate. Options of therapy have been discussed. Written and verbal consent is obtained and he is admitted for the above procedure. PAST MEDICAL HISTORY: Hydronephrosis, urinary retention and a history of dialysis for his urinary r etention. PAST SURGICAL HISTORY: None. MEDICATIONS: Include MiraLAX, Proscar, tamsulosin. Zofran. ALLERGIES: No known drug allergies. REVIEW OF SYSTEMS: Negative cardiac, respiratory, GI and endocrine. PHYSICAL EXAM: VITAL SIGNS: Stable. CHEST: Clear. HEART: Regular rate and rhythm. ABDOMEN: N ormal. No organomegaly, rebound or guarding. EXTREMITIES: Lower extremities are normal. At the present time he is admitted for a TURP. Indications, complications, expectations discussed. Written and verbal consent was obtained. He is admitted for the above procedure. /[id number]/MODL
[2016-07-07] MEDS ORDERED: PROPOFOL 200 MG/20 ML VIAL ONE (09:19)
[2016-07-07] MEDS ORDERED: fentaNYL 100 MCG/2 ML INJ ONE (09:19)
[2016-07-07] MEDS ORDERED: ceFAZolin 2 GM/DEXTROSE 100 ML IV ONE (10:00)
[2016-07-07 10:08] LABS: % IMMATURE GRANULYOCYTES 0.7 % (0.0-1.1); ABSOLUTE IMMATURE GRANULOCYTES 0.05 10^3/uL (0.00-0.10); ADD DIFF? NO; ADD MORPH? NO; ADD SCAN? NO; ATYPICAL LYMPHOCYTE FLAG 0 (0-99); FRAGMENT RBC FLAG 0 (0-99); HEMATOCRIT 33.5 % (40.0-51.0); HEMOGLOBIN 11.4 g/dL (13.7-17.5); LEFT SHIFT FLG 0 (0-99); LIPEMIA HEMOLYSIS FLAG 90 (0-99); MEAN CELL HEMOGLOBIN 32.1 pg (27.9-34.1); MEAN CELL VOLUME 94.4 fL (81.5-99.8); MEAN PLATELET VOLUME 9.4 fL (8.7-11.7); PLATELET CLUMPS FLAG 0 (0-99); PLATELET COUNT 263 10^3/uL (150-400); RED BLOOD CELL COUNT 3.55 10^6/uL (4.40-6.38); RED CELL DISTRIBUTION WIDTH 14.3 % (11.5-15.2)
[2016-07-07] MEDS ORDERED: CEFAZOLIN 1 GM/DEXTROSE/50 ML BAG IV ONE (10:15)
[2016-07-07 10:30] LABS: ANION GAP 12 mEq/L (8-16); CALCIUM 9.5 mg/dL (8.5-10.4); CARBON DIOXIDE 27 mEq/l (22-31); CHLORIDE 99 mEq/L (97-110); CREATININE 3.7 mg/dL (0.7-1.3); GLOMERULAR FILTRATION RATE 16; GLUCOSE 95 mg/dL (70-100); POTASSIUM 4.9 mEq/L (3.5-5.2); SODIUM 138 mEq/L (134-144)
[2016-07-07] MEDS ORDERED: GENTAMICIN 80 MG/NACL 100 ML IV ONE (10:30)
[2016-07-07] MEDS ORDERED: D5W LR 1,000 ML IV SCH ×3 (10:30→11:00)
[2016-07-07] MEDS ORDERED: HYDROCODONE/APAP 5/325 TAB PO PRN (10:38)
[2016-07-07] MEDS ORDERED: OPIUM/BELLADONNA ALKALO SUPP PR PRN (10:38)
[2016-07-07] MEDS ORDERED: MIDAZOLAM 2 MG/2 ML VIAL ONE (10:39)
[2016-07-07] MEDS ORDERED: ZOLPIDEM TARTRATE 5 MG TAB PO PRN (10:39)
[2016-07-07] MEDS ORDERED: LIDOCAINE 2% JELLY 20 ML (UROJECT) ONE (10:47)
--- NOTE | 2016-07-07 12:01 | GOP ---
[f rep st] OPERATIVE REPORT DATE OF OPERATION: 07/07/2016 SURGEON: Tj Wallis MD PREOPERATIVE DIAGNOSIS: BPH, urinary obstruction, hydronephrosis. POSTOPERATIVE DIAGNOSIS: BPH, urinary obstruction, hydronephrosis. PROCEDURE PERFORMED: Transurethral excision of the prostate. FINDINGS: DESCRIPTION OF PROCEDURE: This gentleman underwent general anesthesia, and after appropriate time-o ut and being prepped and draped in a normal sterile fashion, the resectoscope was passed in the blad diana. He had +3 trabeculations of the bladder, and the prostate was obstructing with lateral lobar h ypertrophy. TUR was begun, taking down the right lateral lobe, right portion of the posterior lobe. Hemostasis provided with cauterization. Left lateral lobe and left portion of the posterior lobe resected through. Through this, he had multiple pockets of purulent material that were drained. At the end of the procedure, hemostasis was noted. Bladder was Ellik'd free of all chips and clots, a nd visualization revealed no residual chips or clots. Ureteral orifices were preserved. External s phincter approximated at the midline symmetrically, verumontanum maintain. He had Uroject placed in the urethra, and a 3-way catheter passed in the bladder with a 70 cc balloon inflated, traction zachary sheryl, and irrigated clear. He will be admitted for postoperative care overnight. Specimen sent to Taryn guido. /[id number]/MODL
[2016-07-07] MEDS ORDERED: OPIUM/BELLADONNA ALKALO SUPP PR ONE (12:26)
--- NOTE | 2016-07-08 07:58 | SOAPPROG ---
SOAP Progress Note Assessment/Plan: Assessment: BPH with retention and deluna to be removed after dialysis and follow up in 3 weeks, path pending. POD #1 TURP Plan: dialysis, remove deluna, DC home 07/08/16 07:57 Subjective: doing well , no pain Objective: Vital Signs Temp Pulse Resp BP Pulse Ox 36.9 C 67 18 109/54 L 94 07/08/16 05:28 07/08/16 05:28 07/08/16 05:28 07/08/16 05:28 07/08/16 05:28 Laboratory Results 07/07/16 09:59 07/07/16 09:59 07/07/16 07/08/16 07/09/16 05:59 05:59 05:59 Intake Total 1150 300 Output Total 2625 Balance -1475 300 Physical Exam - Physical Exam General Appearance: alert Neck: supple Respiratory: No respiratory distress Cardiac/Chest: regular rate, rhythm Abdomen: soft Male Genitalia: normal genitalia Extremities: No calf tenderness, No swelling, No Lyla's sign Neuro/Psych: alert, oriented x 3 ICD10 Worksheet Patient Problems: Problems Problem Status Onset Acute renal failure Acute Cachexia Acute Dehydration Acute Loss of appetite Acute Anemia Acute Altered mental status Acute Hypokalemia Acute Hydronephrosis Acute
[2016-07-08 09:45] LABS: % IMMATURE GRANULYOCYTES 0.6 % (0.0-1.1); ABSOLUTE IMMATURE GRANULOCYTES 0.06 10^3/uL (0.00-0.10); ADD DIFF? NO; ADD MORPH? NO; ADD SCAN? NO; ATYPICAL LYMPHOCYTE FLAG 0 (0-99); FRAGMENT RBC FLAG 0 (0-99); HEMATOCRIT 33.2 % (40.0-51.0); HEMOGLOBIN 11.3 g/dL (13.7-17.5); LEFT SHIFT FLG 0 (0-99); LIPEMIA HEMOLYSIS FLAG 90 (0-99); MEAN CELL HEMOGLOBIN 32.1 pg (27.9-34.1); MEAN CELL VOLUME 94.3 fL (81.5-99.8); MEAN PLATELET VOLUME 8.8 fL (8.7-11.7); PLATELET CLUMPS FLAG 10 (0-99); PLATELET COUNT 249 10^3/uL (150-400); RED BLOOD CELL COUNT 3.52 10^6/uL (4.40-6.38); RED CELL DISTRIBUTION WIDTH 14.3 % (11.5-15.2)
--- NOTE | 2016-07-08 09:59 | GCON ---
[f rep st] CONSULTATION NEPHROLOGY CONSULTATION DATE OF CONSULTATION: 07/08/2016 REASON FOR CONSULTATION: Management of end-stage renal disease, urinary retention. HISTORY OF PRESENT ILLNESS: The patient is a 70-year-old male with a past medical history notable p rimarily for obstructive nephropathy and uropathy, who now presents status post a urologic procedure . History is obtained from the patient and the records. The patient originally presented to [facility] in April. He is a retired psychia trist. At that time, he had noted 4 years of urinary retention symptoms and gross hematuria. At th e time of his admission, his BUN was greater than 200 and his creatinine was 21.8. Since that time, the patient has been dialyzing at the [facility]. He has been maintained with an in dwelling catheter. He has been followed by Dr. Wallis of Urology. The patient was admitted earlier this week for a transurethral resection of the prostate by Dr. Wallis. This procedure was performed and it went well. At this point, he still has a Alba catheter in place that is draining clear urin e. The patient's dialysis has been going well. His blood pressure has been good. He is using a cathet er and has refused a fistula. He does have hopes of having some renal recovery. He has no specific complaints at the present time. As related to the above issues, we are asked by Dr. Wallis to sp t in evaluation and management of the patient's renal disease. PAST MEDICAL HISTORY: 1. Renal failure related to urinary obstruction. 2. Urinary obstruction believed to be secondary to benign prostatic hypertrophy. 3. History of inflammatory bladder polyps. 4. History of past alcohol use. FAMILY HISTORY: Positive for colorectal cancer and leukemia. SOCIAL HISTORY: The patient is a retired psychiatrist. He is . He does not smoke cigarett es or drink alcohol. REVIEW OF SYSTEMS: A full 12 systems review was obtained. It was completely negative except for th e presence of his indwelling catheter. PHYSICAL EXAM: GENERAL: At the time of exam, the patient is appropriate and alert. VITAL SIGNS: Temperature afebrile, pulse 56, blood pressure 114/73. HEENT: Eyes: Sclerae are clear. Oropharyn x: Clear. NECK: No lymphadenopathy or thyromegaly. LUNGS: Clear to auscultation. The patient's catheter exit site and tunnel site look good. CARDIOVASCULAR: Rate and rhythm without gallops or rubs. ABDOMEN: Soft, nontender. No organomegaly. : Alba catheter in place. RECTAL: Deferre d. EXTREMITIES: No lower extremity edema. INTEGUMENTARY: Generally clear. NEURO: No focal find ings. LABORATORY TESTS: From yesterday, sodium 138, potassium 4.9, BUN 22, creatinine 3.7. White count 7 .5, hematocrit 33.5, platelets 263. IMPRESSION AND PLAN: 1. Renal failure, on dialysis. The patient is due for his dialysis today. I have contacted our [facility] dialysis service. They will be able to dialyze him later today. We will go ahead and order lab s this morning. His dialysis has been going well, and his access function has been good. His marcus ter looks good on exam. 2. Renal failure. The patient does hope for some renal recovery. As of yesterday, with his creati nine still likely rising, his GFR was calculated at 16%. This will continue to be monitored; and if there are any signs that the patient could come off dialysis, this certainly will happen. 3. Anemia. This is stable. 4. Status post TURP. He is doing very well in relation to this. Thank you for allowing us to participate in the patient's care. We will continue to follow him clos roger with you. /[id number]/MODL
[2016-07-08 10:12] LABS: ALBUMIN 3.6 g/dL (3.5-5.0); ANION GAP 10 mEq/L (8-16); CALCIUM 9.1 mg/dL (8.5-10.4); CARBON DIOXIDE 25 mEq/l (22-31); CHLORIDE 103 mEq/L (97-110); CREATININE 5.1 mg/dL (0.7-1.3); GLOMERULAR FILTRATION RATE 11; GLUCOSE 97 mg/dL (70-100); POTASSIUM 4.5 mEq/L (3.5-5.2); SODIUM 138 mEq/L (134-144)
--- NOTE | 2016-07-08 12:40 | PDIAF ---
- Diagnosis Diagnosis: BPH Code Status: Full Code - Medication Management Discharge Medications: Medications to Continue on Transfer NK [No Known Home Meds] 06/09/16 [Last Taken Unknown] Discharge Medications: Refer to the Discharge Home Medication list for PRN reason. - Orders Diet Recommendation: no restrictions on diet Diet Texture: Regular Texture Diet Alba: Not applicable Activity/Weight Bearing Restrictions: no lifting over 15lbs, no strenous activity. - Follow Up Care Current Providers and Referrals: Tj Wallis MD [Medical Doctor] - (3 weeks) NONE *PRIMARY CARE P,. [Primary Care Provider] -
--- NOTE | 2016-07-08 12:42 | SOAPPROG ---
SOAP Progress Note Assessment/Plan: Assessment: Post op day 1 TURP Plan: Patient is awaiting dialysis later this afternoon. Alba cath to be removed after and patient kept overnight to ensure he voids appropriately. D/C to SNF in AM. 07/08/16 12:40 Subjective: Not comfortable returning to current living situation Objective: Vital Signs Temp Pulse Resp BP Pulse Ox 36.4 C 60 16 127/88 H 92 07/08/16 12:29 07/08/16 12:29 07/08/16 12:29 07/08/16 12:29 07/08/16 12:29 Laboratory Results 07/08/16 09:36 07/08/16 09:36 07/07/16 07/08/16 07/09/16 05:59 05:59 05:59 Intake Total 1150 300 Output Total 2625 Balance -1475 300 Physical Exam - Physical Exam General Appearance: no apparent distress Respiratory: normal breath sounds Male Genitalia: other (pink urine in catheter bag) ICD10 Worksheet Patient Problems: Problems Problem Status Onset Acute renal failure Acute Altered mental status Acute Anemia Acute Cachexia Acute Dehydration Acute Hydronephrosis Acute Hypokalemia Acute Loss of appetite Acute
[2016-07-08] MEDS ORDERED: BACITRACIN/POLYMYXIN B SULFATE 28.3 GM TUBE TP SCH (15:30)
[2016-07-08] MEDS ORDERED: HEPARIN 50,000 UNIT/10 ML VIAL ONE (18:44)
[2016-07-09 05:53] LABS: % IMMATURE GRANULYOCYTES 0.6 % (0.0-1.1); ABSOLUTE IMMATURE GRANULOCYTES 0.05 10^3/uL (0.00-0.10); ADD DIFF? NO; ADD MORPH? NO; ADD SCAN? NO; ATYPICAL LYMPHOCYTE FLAG 0 (0-99); FRAGMENT RBC FLAG 0 (0-99); LEFT SHIFT FLG 0 (0-99); LIPEMIA HEMOLYSIS FLAG 90 (0-99); MEAN CELL HEMOGLOBIN 32.6 pg (27.9-34.1); MEAN CELL HEMOGLOBIN CONCENTR. 34.3 g/dL (32.4-36.7); MEAN CELL VOLUME 95.1 fL (81.5-99.8); MEAN PLATELET VOLUME 9.2 fL (8.7-11.7); PLATELET CLUMPS FLAG 0 (0-99); PLATELET COUNT 232 10^3/uL (150-400); RED BLOOD CELL COUNT 3.68 10^6/uL (4.40-6.38); RED CELL DISTRIBUTION WIDTH 14.2 % (11.5-15.2)
--- NOTE | 2016-07-09 13:09 | SOAPPROG ---
SOMAYNOR Progress Note Assessment/Plan: Assessment: 1. ESRD Stable HD Monday. Next on Monday 2. s/p TURP Ongoing retention after DC of Alba. Now catheter back in . I will review plan with urology. Plan: 07/09/16 13:02 Subjective: Doing fair Objective: Vital Signs Temp Pulse Resp BP Pulse Ox 36.6 C 67 16 120/70 92 07/09/16 11:33 07/09/16 11:33 07/09/16 11:33 07/09/16 11:33 07/09/16 11:33 Laboratory Results 07/09/16 05:32 07/08/16 09:36 07/08/16 07/09/16 07/10/16 05:59 05:59 05:59 Intake Total 1150 1000 300 Output Total 2625 1500 Balance -1475 -500 300 Physical Exam - Physical Exam General Appearance: no apparent distress Respiratory: lungs clear Cardiac/Chest: regular rate, rhythm Extremities: pedal edema Neuro/Psych: oriented x 3 ICD10 Worksheet Patient Problems: Problems Problem Status Onset Acute renal failure Acute Altered mental status Acute Anemia Acute Cachexia Acute Dehydration Acute Hydronephrosis Acute Hypokalemia Acute Loss of appetite Acute
--- NOTE | 2016-07-10 11:18 | SOAPPROG ---
HERBIE Progress Note Assessment/Plan: Assessment: 1. ESRD HD tomorrow 2. s/p TURP Catheter dc'd again this am. Urology to round later today and make decisions re management and DC plans. Plan: 07/09/16 13:02 07/10/16 11:17 Subjective: No complaints Objective: Vital Signs Temp Pulse Resp BP Pulse Ox 36.5 C 76 17 150/78 H 96 07/10/16 09:49 07/10/16 09:49 07/10/16 09:49 07/10/16 09:49 07/10/16 09:49 Laboratory Results 07/09/16 05:32 07/08/16 09:36 07/09/16 07/10/16 07/11/16 05:59 05:59 05:59 Intake Total 1000 1000 Output Total 1500 1770 Balance -500 -770 Physical Exam - Physical Exam General Appearance: no apparent distress Neck: other (Cath tunnel site ok) Respiratory: lungs clear Cardiac/Chest: regular rate, rhythm Extremities: normal inspection ICD10 Worksheet Patient Problems: Problems Problem Status Onset Acute renal failure Acute Altered mental status Acute Anemia Acute Cachexia Acute Dehydration Acute Hydronephrosis Acute Hypokalemia Acute Loss of appetite Acute
[2016-07-10 16:05] VITALS: PULSE 67
--- NOTE | 2016-07-10 19:56 | SOAPPROG ---
SOAP Progress Note Assessment/Plan: Assessment: s/p TURP on 07/07 - failed 2 voiding trials over the last 2 days. Plan: 1. D/C home from hospital w/ indwelling Alba in AM (pt. does not desire to leave this evening). 2. FU w/ Dr. Wallis in 1 week for voiding trial. Subjective: No complaints. Voided only 3 cc before catheter reinserted earlier today. Objective: Vital Signs Temp Pulse Resp BP Pulse Ox 36.4 C 67 16 142/70 H 99 07/10/16 16:03 07/10/16 16:03 07/10/16 16:03 07/10/16 16:03 07/10/16 16:03 Laboratory Results 07/09/16 05:32 07/08/16 09:36 07/09/16 07/10/16 07/11/16 05:59 05:59 05:59 Intake Total 1000 1000 800 Output Total 1500 1770 1075 Balance -500 -770 -027 Physical Exam - Physical Exam General Appearance: WD/WN, alert, no apparent distress Male Genitalia: other (urine clear via Alba) Neuro/Psych: alert, normal mood/affect, oriented x 3 ICD10 Worksheet Patient Problems: Problems Problem Status Onset Acute renal failure Acute Altered mental status Acute Anemia Acute Cachexia Acute Dehydration Acute Hydronephrosis Acute Hypokalemia Acute Loss of appetite Acute
[2016-07-10 20:09] VITALS: BP 140/82; RESP 18; TEMP 97.8; O2SAT 96
[2016-07-11 06:02] LABS: ALBUMIN 4.2 g/dL (3.5-5.0); ANION GAP 14 mEq/L (8-16); CALCIUM 9.2 mg/dL (8.5-10.4); CARBON DIOXIDE 20 mEq/l (22-31); CHLORIDE 103 mEq/L (97-110); GLOMERULAR FILTRATION RATE 9; GLUCOSE 100 mg/dL (70-100); POTASSIUM 5.7 mEq/L (3.5-5.2); SODIUM 137 mEq/L (134-144)
== END 2016-07-11 05:37 | disposition home or self-care (01) | DRG 713 ==
LOC: INTOOBSV 08:52 → F3E 08:52 → F1N 13:19 → OBSVTOIN 07-08 14:16
PROVIDERS: ADMIT Specialist; ATTEND Specialist
PROC: 5A1D00Z (ICD-10-PCS; 2016-07-07)
PROC: 0VT07ZZ Resection of Prostate, Via Natural or Artificial Opening (ICD-10-PCS; principal; 2016-07-07 10:15)
DX: N40.1 Benign prostatic hyperplasia with lower urinary tract symptoms (principal); R33.8 Other retention of urine; N18.6 End stage renal disease; Z99.2 Dependence on renal dialysis; N13.30 Unspecified hydronephrosis
CPT/HCPCS: J0690; J1580; J1644; J2250; J2704; J3010

== ENCOUNTER 2016-07-29 11:21 | Observation (INO) | payer OTHER ==
[2016-07-29 13:21] LABS: ANION GAP 13 mEq/L (8-16); CALCIUM 9.4 mg/dL (8.5-10.4); CARBON DIOXIDE 23 mEq/l (22-31); CHLORIDE 106 mEq/L (97-110); CREATININE 4.7 mg/dL (0.7-1.3); GLOMERULAR FILTRATION RATE 12; GLUCOSE 76 mg/dL (70-100); POTASSIUM 5.2 mEq/L (3.5-5.2); SODIUM 142 mEq/L (134-144)
[2016-07-29] MEDS ORDERED: ceFAZolin 2 GM/DEXTROSE 100 ML IV ONE (13:30)
[2016-07-29] MEDS ORDERED: LR 1,000 ML IV ONE (13:35)
[2016-07-29] MEDS ORDERED: HYDROCODONE/APAP 5/325 TAB PO PRN (13:42)
[2016-07-29] MEDS ORDERED: ONDANSETRON 4 MG/2 ML VIAL IVP PRN (13:42)
[2016-07-29] MEDS ORDERED: HYDROmorphONE/DILAUDID 1 MG/ML SYR IVP PRN (13:42)
[2016-07-29] MEDS ORDERED: VANCOMYCIN IV ONE (14:00)
[2016-07-29] MEDS ORDERED: D5W IV ONE (14:00)
[2016-07-29] MEDS ORDERED: LIDO/EPI 1% **for epidural** 30 ML SDV ONE (14:10)
[2016-07-29] MEDS ORDERED: LIDOCAINE 1% 300 MG/30 ML SDV ONE (14:11)
[2016-07-29] MEDS ORDERED: SODIUM BICARBONATE 10 MEQ/10 ML SYR IVP ONE (14:12)
[2016-07-29] MEDS ORDERED: BUPIVACAINE 0.5% 30 ML SDV ONE (14:13)
[2016-07-29] MEDS ORDERED: HEPARIN 5,000 UNIT/0.5 ML SYR ONE (14:20)
[2016-07-29] MEDS ORDERED: MIDAZOLAM 2 MG/2 ML VIAL ONE (14:24)
[2016-07-29] MEDS ORDERED: HEPARIN 1000 UNIT/1 ML MDV ONE (14:24)
[2016-07-29] MEDS ORDERED: HEPARIN 10,000 UNIT/10 ML MDV ONE (14:25)
[2016-07-29] MEDS ORDERED: fentaNYL 100 MCG/2 ML INJ ONE (14:38)
[2016-07-29] MEDS ORDERED: PROPOFOL 200 MG/20 ML VIAL ONE (14:38)
[2016-07-29] MEDS ORDERED: DEXAMETHASONE 4 MG/ML VIAL ONE (14:39)
[2016-07-29] MEDS ORDERED: KETOROLAC 30 MG/1 ML SDV ONE (14:39)
[2016-07-29] MEDS ORDERED: ONDANSETRON 4 MG/2 ML VIAL ONE (14:39)
[2016-07-29] MEDS ORDERED: LIDOCAINE 2% 5 ML SDV ONE (14:41)
[2016-07-29] MEDS ORDERED: HEPARIN 50,000 UNIT/10 ML VIAL ONE (15:31)
--- NOTE | 2016-07-29 16:31 | POSTOPPROG ---
Post Op Note Date of Operation: 07/29/16 Surgeon: Celestino Pinedo Anesthesiologist: LELAND Anesthesia: GET(General Endotracheal) Pre-op Diagnosis: CHRONIC RENAL FAILURE / INFECTED PALINDROMIC Post-op Diagnosis: SAME Indication: DIALYSIS ACCESS Procedure: IJ PALINDROMIC TUNNELED CATHETER WITH FLUORO AND ULTRASOUND Findings: GOOD FLOW Inf/Abcess present in the surg proc area at time of surgery?: No Depth: Deep Incisional (Fascial) EBL: Minimal Complications: NONE Specimen(s): NONE
--- NOTE | 2016-07-29 19:58 | SOAPPROG ---
HERBIE Progress Note Assessment/Plan: Assessment: STABLE POSTOP / CHEST X-RAY OKAY Plan: AWAIT RENAL PLANS FOR DIALYSIS 07/29/16 19:57 Objective: Vital Signs Temp Pulse Resp BP Pulse Ox 36.7 C 77 16 154/89 H 96 07/29/16 16:52 07/29/16 16:52 07/29/16 16:52 07/29/16 16:52 07/29/16 16:52 Laboratory Results 07/29/16 12:40 07/28/16 07/29/16 07/30/16 05:59 05:59 05:59 Output Total 245 Balance -245 ICD10 Worksheet Patient Problems: Problems Problem Status Onset Acute renal failure Acute Altered mental status Acute Anemia Acute Cachexia Acute Dehydration Acute Hydronephrosis Acute Hypokalemia Acute Loss of appetite Acute
--- NOTE | 2016-07-29 22:57 | GCON ---
[f rep st] CONSULTATION REFERRING PHYSICIAN: Celestino Pinedo MD REASON FOR CONSULTATION: Medical management. HISTORY OF PRESENT ILLNESS: This is a 70-year-old male, with a history of end-stage renal disease, secondary to urinary obstruction. The patient first presented to [facility] in 2016, where he was found to have severe urinary obstruction secondary to prostate enlargement. He was initiated on hemodialysis through a tunneled catheter, evaluated by Urology, who recommended Alba catheter placement at that time and ultimately TURP, which he returned to the hospital for on July 07, 2016. Patient had an uncomplicated TURP, and was discharged 07/10/2016, with outpatient nep hrology followup, as well as urology. The patient has been treated in the outpatient setting for an infected catheter, was brought into the hospital on 07/29 for removal of the infected tunneled dial ysis catheter and replacement of a new catheter. The patient denies any subjective fevers or chills . Denies any rigor. Reports urinating without complication, and that his hematuria has cleared sin ce his TURP. Denies any diarrhea, chest pain, shortness of breath. Reports being able to tolerate p.o. without difficulty. PAST MEDICAL HISTORY: 1. End-stage renal disease, secondary to urinary obstruction. 2. Hemodialysis dependent. 3. Benign prostatic hypertrophy, status post TURP. 4. Inflammatory bladder polyps. 5. History of alcohol abuse. FAMILY HISTORY: Positive for colorectal cancer. SOCIAL HISTORY: He is a retired psychiatrist. . Does not smoke or drink. REVIEW OF SYSTEMS: A 10-point review of systems is negative with the exception of that reported in the HPI. PHYSICAL EXAMINATION: VITAL SIGNS: Blood pressure 139/70, heart rate is 87, respiratory rate 16, 9 6% on room air, 36.7. GENERAL: This is a healthy-appearing, middle-aged male, in no acute distress . HEENT: Notable for moist mucous membranes. Eyes: Negative for any icterus. CARDIAC: Patient is regular rate and rhythm. A systolic murmur is appreciated. PULMONARY: Good respiratory effort. Clear to auscultation bilaterally. GASTROINTESTINAL: Positive bowel sounds. ABDOMEN: Soft and nontender. MUSCULOSKELETAL: Negative for any lower extremity edema. SKIN: Negative for any rashe s. NEUROLOGIC: He is alert and oriented x3. PSYCHIATRIC: Pleasant and cooperative on interview a nd examination. DATA: Chest x-ray, which I personally reviewed and interpreted, shows no acute infiltrates or edema . Negative for pneumothorax. LABORATORY: White count 8.2, hematocrit 35, platelets of 232. Creatinine 4.7, potassium 5.2. ASSESSMENT AND PLAN: This is a 70-year-old male, presenting for removal of a tunneled catheter and replacement for hemodialysis. 1. Acute infected tunneled catheter. I do not have blood culture showing a blood-borne infection. I have urine culture from 04/09/2016, that is growing sensitive Staphylococcus aureus. The patient reported he has been on IV vancomycin prior to rehospitalization and we will continue this at this time. We will order blood cultures. The catheter tip has been sent and is pending at this time. W e may need to involve Infectious Disease. I discussed with Nephrology there is more outpatient micr obiologic data available. 2. End-stage renal disease. I did discuss the case with Nephrology. Patient does not have any urg ent requirements for hemodialysis. We will add a phosphorus to his admission labs. Anticipate hemo dialysis tomorrow with the new catheter. 3. Urinary obstruction, status post transurethral resection of prostate. Patient reports symptoms have markedly improved. Can continue to follow. 4. Prophylaxis. Patient is ambulating without complication. 5. Diet: Renal. Thank you for the consultation. We will follow along. /[id number]/MODL
[2016-07-30 06:04] LABS: HEMATOCRIT 32.2 % (40.0-51.0); MEAN CELL HEMOGLOBIN 32.5 pg (27.9-34.1); MEAN CELL HEMOGLOBIN CONCENTR. 34.2 g/dL (32.4-36.7); MEAN CELL VOLUME 95.3 fL (81.5-99.8); RED BLOOD CELL COUNT 3.38 10^6/uL (4.40-6.38); RED CELL DISTRIBUTION WIDTH 13.1 % (11.5-15.2)
[2016-07-30 06:26] LABS: ANION GAP 10 mEq/L (8-16); CALCIUM 9.4 mg/dL (8.5-10.4); CARBON DIOXIDE 22 mEq/l (22-31); CHLORIDE 105 mEq/L (97-110); CREATININE 5.2 mg/dL (0.7-1.3); GLOMERULAR FILTRATION RATE 11; GLUCOSE 104 mg/dL (70-100); POTASSIUM 5.7 mEq/L (3.5-5.2); SODIUM 137 mEq/L (134-144)
--- NOTE | 2016-07-30 10:08 | HOSPPROG ---
Hospitalist Progress Note Assessment/Plan: #ESRD: appreciate renal consult. HD per their recs #Infected dialysis catheter: infected line removed and replaced by Dr. Pinedo -trying to obtain culture data from dialysis center in [place] #Hypervolemia: HD today #Hyperkalemia: HD today #Anemia of renal disease: No epo warranted #Diet: renal #DVT ppx: SQH #Disp: warrants inpatient admission with need for HD, IV abx Subjective: no fever or pain at dialysis catheter site Objective: Vital Signs Temp Pulse Resp BP Pulse Ox 36.6 C 67 14 131/68 H 92 07/30/16 08:00 07/30/16 08:00 07/30/16 08:00 07/30/16 08:00 07/30/16 08:00 Laboratory Results 07/30/16 05:21 07/30/16 05:21 07/29/16 07/30/16 07/31/16 05:59 05:59 05:59 Intake Total 1000 Output Total 245 Balance 755 - Physical Exam Constitutional: no apparent distress Eyes: PERRL Ears, Nose, Mouth, Throat: moist mucous membranes, hearing normal Cardiovascular: regular rate and rhythym, no murmur, rub, or gallop, edema (LE edema +2) Respiratory: no respiratory distress Gastrointestinal: normoactive bowel sounds, soft, non-tender abdomen Genitourinary: no bladder fullness Skin: warm Musculoskeletal: full muscle strength Neurologic: AAOx3 Psychiatric: interacting appropriately ICD10 Worksheet Patient Problems: Problems Problem Status Onset Acute renal failure Acute Altered mental status Acute Anemia Acute Cachexia Acute Dehydration Acute Hydronephrosis Acute Hypokalemia Acute Loss of appetite Acute
--- NOTE | 2016-07-30 10:25 | SOAPPROG ---
SOAP Progress Note Assessment/Plan: Assessment: s/p removal and placement of palindrome Dialysis at noon today Discharge after dialysis per patient request Sleeps in his car Usually takes bus after dialysis Recommended he look at resources for seniors Replaced S: Dressing at neck is pinching Dressings dry Appears well Plan: 07/30/16 10:16 Objective: Vital Signs Temp Pulse Resp BP Pulse Ox 36.6 C 67 14 131/68 H 92 07/30/16 08:00 07/30/16 08:00 07/30/16 08:00 07/30/16 08:00 07/30/16 08:00 Laboratory Results 07/30/16 05:21 07/30/16 05:21 07/29/16 07/30/16 07/31/16 05:59 05:59 05:59 Intake Total 1000 Output Total 245 Balance 755 ICD10 Worksheet Patient Problems: Problems Problem Status Onset Acute renal failure Acute Altered mental status Acute Anemia Acute Cachexia Acute Dehydration Acute Hydronephrosis Acute Hypokalemia Acute Loss of appetite Acute
--- NOTE | 2016-07-30 11:40 | PDGENHP ---
History and Physical - Chief Complaint renal failure - History of Present Illness Dr. Martinez is a 70 yo M with h/o renal failure due to urinary obstruction who has been on HD since 04/2016 and still has not recovered enough function to come off HD, has been dialyzed at [facility] on MWF under Dr. Lehman. Pt has been treated for a line infection with vancomycin for about one week. He had his catheter removed on and was admitted yesterday after replacement of a new tunneled dialysis catheter. He plans on fistula placement in the near future. He is otherwise feeling well, no complaints. His last HD was on Monday. History Information - Allergies/Home Medication List Allergies/Adverse Reactions: No Known Allergies Allergy (Unverified 04/09/16 15:26) Home Medications: NK [No Known Home Meds] 06/09/16 [Last Taken Unknown] I have personally reviewed and updated: medical history Past Medical History: renal failure, requiring HD. urinary obstruction due to BPH - Surgical History Additional surgical history: tunneled dialysis catheter placement - Family History Additional family history: colorectal cancer - Social History Smoking Status: Former smoker Review of Systems ROS: 10pt was reviewed & negative except for what was stated in HPI & below Physical Exam Temp Pulse Resp BP Pulse Ox 36.6 C 67 14 131/68 H 92 07/30/16 08:00 07/30/16 08:00 07/30/16 08:00 07/30/16 08:00 07/30/16 08:00 O2 (L/minute) 2 Constitutional: no apparent distress, appears nourished, not in pain Eyes: PERRL, anicteric sclera, EOMI Ears, Nose, Mouth, Throat: moist mucous membranes, hearing normal Cardiovascular: regular rate and rhythym, pulses symmetric bilaterally, edema (+ 1 BLE) Peripheral Pulses: 2+: dorsalis-pedis (R), dorsalis-pedis (L) Respiratory: no respiratory distress, no rales or rhonchi, clear to auscultation Gastrointestinal: normoactive bowel sounds, soft, non-tender abdomen Skin: warm, normal color, No rash Musculoskeletal: no muscle tenderness, normal joint ROM Neurologic: AAOx3, CN II-XII Intact, No asterixes Psychiatric: interacting appropriately, not anxious, not encephalopathic Lab Data & Imaging Review 07/30/16 05:21 07/30/16 05:21 WBC 10.83 10^3/uL (3.80-9.50) H 07/30/16 05:21 RBC 3.38 10^6/uL (4.40-6.38) L 07/30/16 05:21 Hgb 11.0 g/dL (13.7-17.5) L 07/30/16 05:21 Hct 32.2 % (40.0-51.0) L 07/30/16 05:21 MCV 95.3 fL (81.5-99.8) 07/30/16 05:21 MCH 32.5 pg (27.9-34.1) 07/30/16 05:21 MCHC 34.2 g/dL (32.4-36.7) 07/30/16 05:21 RDW 13.1 % (11.5-15.2) 07/30/16 05:21 Plt Count 291 10^3/uL (150-400) 07/30/16 05:21 Sodium 137 mEq/L (134-144) 07/30/16 05:21 Potassium 5.7 mEq/L (3.5-5.2) H 07/30/16 05:21 Chloride 105 mEq/L (97-110) 07/30/16 05:21 Carbon Dioxide 22 mEq/l (22-31) 07/30/16 05:21 Anion Gap 10 mEq/L (8-16) 07/30/16 05:21 BUN 35 mg/dL (7-23) H 07/30/16 05:21 Creatinine 5.2 mg/dL (0.7-1.3) H 07/30/16 05:21 Estimated GFR 11 07/30/16 05:21 Glucose 104 mg/dL (70-100) H 07/30/16 05:21 Calcium 9.4 mg/dL (8.5-10.4) 07/30/16 05:21 Phosphorus 3.6 mg/dL (2.5-4.5) 07/29/16 12:40 Assessment & Plan Assessment: Assessment/Plan: renal failure: on HD since 04/2016 with no recovery yet, has UOP. Dialyzes MWF, last dialyzed on Monday. - Will do HD today. - Resume MWF next week. Hyperkalemia: K 5.7, will modulate with HD. Hypervolemia: will modulate with HD. Anemia: Hgb 11.0, no need for epo. Thank you for the interesting consult. Nephrology will continue to follow, please call with any additional questions or concerns.
[2016-07-30] MEDS ORDERED: VANCOMYCIN HCL/NORMAL SALINE 250 ML IV ONE (16:24)
[2016-07-30 17:46] VITALS: BP 131/71; PULSE 76; RESP 14; TEMP 97.6; O2SAT 94
[2016-07-31] MEDS ORDERED: HEPARIN 5,000 UNIT/0.5 ML SYR SC SCH (14:00)
--- NOTE | 2016-08-02 14:53 | GOP ---
[f rep st] OPERATIVE REPORT DATE OF OPERATION: 07/29/2016 SURGEON: Celestino Pinedo MD PREOPERATIVE DIAGNOSIS: Renal failure. POSTOPERATIVE DIAGNOSIS: Renal failure. PROCEDURE PERFORMED: Right internal jugular Palindrome tunneled catheter placement with fluoroscopi c and ultrasound guidance. FINDINGS: The patient was found to have good position and flow. DESCRIPTION OF PROCEDURE: Patient was taken to the operating room where he received satisfactory ge neral endotracheal anesthesia by Dr. Razo. He was placed in the supine position, with his ar ms tucked, and then prepped and draped in usual sterile fashion. Much care was made to avoid his pr evious catheter site, which had been infected. Using ultrasound guidance, the internal jugular vein was identified. A single stick was made, and access to the internal jugular vein was obtained. A guidewire was introduced and passed down the inferior vena cava; the position was confirmed with flu oroscopy. A Palindrome tunneled catheter was brought in through a separate stab incision on the ant erior chest wall, much more medial than usual, tunneled up over the clavicle into the insertion site . It was then introduced into the right atrium after passage of multiple dilators, and a dilator in troducer sheath. That was removed. Catheter showed good position and good curvature with no eviden ce of kinking. Catheter was flushed with heparin saline and flowed excellently. That was then inst illed with the appropriate amount of 5000 units/cc heparin. The catheter was secured to the exit si te with 3-0 Prolene sutures, and the entrance site was closed with 3-0 Prolene mattress sutures. Al l wounds were infiltrated with 0.5% Marcaine. He tolerated the procedure well and was taken to the recovery room in good condition. There were no complications. /[id number]/MODL
== END 2016-07-30 20:20 | disposition home or self-care (01) ==
LOC: FSGY 11:21 → F3E 13:40
PROVIDERS: ADMIT Surgery; ATTEND Surgery
PROC: 02H633Z Insertion of Infusion Device into Right Atrium, Percutaneous Approach (ICD-10-PCS; principal; 2016-07-29 12:45)
DX: T82.7XXA Infection and inflammatory reaction due to other cardiac and vascular devices, implants and grafts, initial encounter (principal); N18.6 End stage renal disease; Z99.2 Dependence on renal dialysis; D41.4 Neoplasm of uncertain behavior of bladder
CPT/HCPCS: 36558; 71010; 76001; C1750; J1100; J1642; J1644; J2250; J2405; J2704; J3010; J3370; J1885

== ENCOUNTER 2016-08-04 05:35 | Inpatient (IN) | payer OTHER ==
[2016-08-04] MEDS ORDERED: ceFAZolin 2 GM/DEXTROSE 100 ML IV ONE (06:00)
[2016-08-04] MEDS ORDERED: NS 1,000 ML IV ONE (06:16)
[2016-08-04] MEDS ORDERED: LIDOCAINE 1% 5 ML SDV ID PRN (06:16)
[2016-08-04] MEDS ORDERED: PROTAMINE SULFATE 50 MG/5 ML VIAL IVP ONE (06:42)
[2016-08-04] MEDS ORDERED: BUPIVACAINE 0.5% 30 ML SDV ONE (06:42)
[2016-08-04] MEDS ORDERED: THROMBIN (BOVINE) 5,000 UNIT VIAL TP ONE (06:42)
[2016-08-04] MEDS ORDERED: THROMBIN (BOVINE) 20,000 UNIT SPRAY TP ONE (06:43)
[2016-08-04] MEDS ORDERED: PAPAVERINE HCL 60 MG/2 ML SDV ONE (06:43)
[2016-08-04] MEDS ORDERED: PROPOFOL 200 MG/20 ML VIAL ONE ×2 (07:00)
[2016-08-04] MEDS ORDERED: fentaNYL 100 MCG/2 ML INJ ONE ×2 (07:00→09:52)
[2016-08-04 07:09] LABS: % IMMATURE GRANULYOCYTES 0.5 % (0.0-1.1); ABSOLUTE IMMATURE GRANULOCYTES 0.03 10^3/uL (0.00-0.10); ADD DIFF? NO; ADD MORPH? NO; ADD SCAN? NO; ATYPICAL LYMPHOCYTE FLAG 0 (0-99); FRAGMENT RBC FLAG 0 (0-99); HEMATOCRIT 32.7 % (40.0-51.0); LEFT SHIFT FLG 0 (0-99); LIPEMIA HEMOLYSIS FLAG 80 (0-99); MEAN CELL HEMOGLOBIN CONCENTR. 33.6 g/dL (32.4-36.7); MEAN CELL VOLUME 95.1 fL (81.5-99.8); MEAN PLATELET VOLUME 9.1 fL (8.7-11.7); PLATELET CLUMPS FLAG 0 (0-99); PLATELET COUNT 229 10^3/uL (150-400); RED BLOOD CELL COUNT 3.44 10^6/uL (4.40-6.38); RED CELL DISTRIBUTION WIDTH 13.1 % (11.5-15.2)
[2016-08-04 07:22] LABS: ALANINE AMINOTRANSFERASE 39 IU/L (21-72); ALKALINE PHOSPHATASE 122 IU/L (38-126); ANION GAP 10 mEq/L (8-16); ASPARTATE AMINOTRANSFERASE 24 IU/L (17-59); BILIRUBIN,TOTAL 0.6 mg/dL (0.1-1.4); CALCIUM 9.5 mg/dL (8.5-10.4); CARBON DIOXIDE 29 mEq/l (22-31); CHLORIDE 102 mEq/L (97-110); CREATININE 3.3 mg/dL (0.7-1.3); GLOMERULAR FILTRATION RATE 19; GLUCOSE 99 mg/dL (70-100); POTASSIUM 5.1 mEq/L (3.5-5.2); SODIUM 141 mEq/L (134-144); TOTAL PROTEIN 7.2 g/dL (6.3-8.2)
[2016-08-04 09:07] LABS: % IMMATURE GRANULYOCYTES 0.6 % (0.0-1.1); ABSOLUTE IMMATURE GRANULOCYTES 0.04 10^3/uL (0.00-0.10); ADD DIFF? NO; ADD MORPH? NO; ADD SCAN? NO; ATYPICAL LYMPHOCYTE FLAG 10 (0-99); FRAGMENT RBC FLAG 0 (0-99); HEMATOCRIT 31.7 % (40.0-51.0); HEMOGLOBIN 10.6 g/dL (13.7-17.5); LEFT SHIFT FLG 0 (0-99); LIPEMIA HEMOLYSIS FLAG 80 (0-99); MEAN CELL HEMOGLOBIN CONCENTR. 33.4 g/dL (32.4-36.7); MEAN CELL VOLUME 95.8 fL (81.5-99.8); MEAN PLATELET VOLUME 10.1 fL (8.7-11.7); PLATELET CLUMPS FLAG 0 (0-99); PLATELET COUNT 246 10^3/uL (150-400); RED BLOOD CELL COUNT 3.31 10^6/uL (4.40-6.38); RED CELL DISTRIBUTION WIDTH 13.2 % (11.5-15.2)
[2016-08-04 09:21] LABS: ANION GAP 12 mEq/L (8-16); CALCIUM 9.4 mg/dL (8.5-10.4); CARBON DIOXIDE 26 mEq/l (22-31); CHLORIDE 102 mEq/L (97-110); CREATININE 3.2 mg/dL (0.7-1.3); GLOMERULAR FILTRATION RATE 19; GLUCOSE 89 mg/dL (70-100); POTASSIUM 4.8 mEq/L (3.5-5.2); SODIUM 140 mEq/L (134-144)
[2016-08-04] MEDS ORDERED: HYDROmorphONE/DILAUDID 1 MG/ML SYR IVP PRN (09:30)
[2016-08-04] MEDS ORDERED: ONDANSETRON 4 MG/2 ML VIAL IVP PRN (09:30)
[2016-08-04] MEDS ORDERED: ACETAMINOPHEN 325 MG TAB PO PRN (09:30)
[2016-08-04] MEDS ORDERED: HYDROCODONE/APAP 5/325 TAB PO PRN (09:30)
[2016-08-04] MEDS ORDERED: D5W 1/2 NS W/ 20 KCl/L 1,000 ML IV SCH (09:30)
--- NOTE | 2016-08-04 10:48 | GOP ---
[f rep st] OPERATIVE REPORT DATE OF OPERATION: 08/04/2016 SURGEON: Celestino Pinedo MD SERVICE DESK DIRECTOR: AUBRIE Chin ANESTHESIOLOGIST: Dr. Schultz. PREOPERATIVE DIAGNOSIS: Chronic renal failure. POSTOPERATIVE DIAGNOSIS: Chronic renal failure. PROCEDURE PERFORMED: 1. Ultrasound vein mapping the left arm. 2. A left brachial basilic AV fistula with basilic vein transposition. FINDINGS: Patient was found to have a poor cephalic vein at the wrist which petered out in the mid forearm. He had no significant cephalic vein in the upper arm. He had an excellent basilic vein on the medial aspect of the upper arm. The option was a basilic vein transposition. DESCRIPTION OF PROCEDURE: Patient was taken to the operating room where he received satisfactory ge neral endotracheal anesthesia by Dr. Schultz. He was placed in the supine position with his left arm outstretched on an arm board, prepped and draped in the usual sterile fashion. Ultrasound mapping o f his veins was performed with the above-noted findings. A curvilinear incision was made in the ant ecubital space. Dissection extended down through the subcutaneous tissue and through the superficia l fascia and the brachial artery was dissected free and controlled with vessel loops. A lateral inc ision was made over the basilic vein. It was then dissected free from the axilla down to past the a ntecubital space. It was ligated distally where it divided into 3 branches. The vein itself was th en transposed in a subcutaneous subdermal position more anteriorly on the arm and brought into the a larry of the brachial artery at the antecubital fossa. Patient was systemically heparinized and an en d-to-side anastomosis was made using a running 6-0 Prolene suture creating a good AV fistula. There was good flow in the fistula. Flow was established through the fistula, then back down the hand. He maintained good capillary filling and a radial pulse in the hand. Hemostasis was assured with el ectrocautery. Heparin was reversed with protamine. The wound was sprayed with some topical thrombi n. A 15 round silicone COLLEEN drain was brought out through a separate stab incision and secured to the skin with silk suture. Subcu was then closed with 3-0 Vicryl, with care to avoid any compromise to the AV fistula. Skin was closed with skin tess. Wounds were infiltrated with 0.5% Marcaine. H e tolerated the procedure quite well. Blood loss negligible. No complications. Taken to recovery room in good condition. /[id number]/MODL
[2016-08-04] MEDS ORDERED: HYDROmorphONE/DILAUDID 2 MG/ML INJ ONE (11:01)
[2016-08-05] MEDS: OXYCODONE/APAP 5/325 TAB PO PRN ×4 (01:37→21:17)
[2016-08-05] MEDS ORDERED: HEPARIN 5,000 UNIT/0.5 ML SYR SC ONE (10:45)
--- NOTE | 2016-08-05 11:12 | SOAPPROG ---
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 Remains on Vanco Now s/p : basilic vein AVF with transposition on 08/04/[address] Needing inpatient management for wound care and drain management Will follow Vanco three times weekly, dose after dialysis today 08/05/16 11:09 Objective: Vital Signs Temp Pulse Resp BP Pulse Ox 36.5 C 65 20 107/56 L 96 08/05/16 07:06 08/05/16 07:06 08/05/16 07:06 08/05/16 07:06 08/05/16 07:06 Laboratory Results 08/04/16 07:00 08/04/16 07:00 08/04/16 08/05/16 08/06/16 05:59 05:59 05:59 Intake Total 550 Output Total 255 15 Balance 295 -15 ICD10 Worksheet Patient Problems: Problems Problem Status Onset Acute renal failure Acute Altered mental status Acute Anemia Acute Cachexia Acute Dehydration Acute Hydronephrosis Acute Hypokalemia Acute Loss of appetite Acute
--- NOTE | 2016-08-05 11:56 | SOAPPROG ---
SOAP Progress Note Assessment/Plan: Assessment: CATHETER SITE OK/ AVF FLOWING WELL, MILD SWELLING/ MINIMAL DRAINAGE/ AFEBRILE EATING OK/ NO PROBLEMS Plan:DIALYSIS TODAY, HOME IN AM 08/05/16 11:54 Objective: Vital Signs Temp Pulse Resp BP Pulse Ox 36.5 C 65 20 107/56 L 96 08/05/16 07:06 08/05/16 07:06 08/05/16 07:06 08/05/16 07:06 08/05/16 07:06 Laboratory Results 08/04/16 07:00 08/04/16 07:00 08/04/16 08/05/16 08/06/16 05:59 05:59 05:59 Intake Total 550 Output Total 255 15 Balance 295 -15 ICD10 Worksheet Patient Problems: Problems Problem Status Onset Acute renal failure Acute Altered mental status Acute Anemia Acute Cachexia Acute Dehydration Acute Hydronephrosis Acute Hypokalemia Acute Loss of appetite Acute
--- NOTE | 2016-08-05 12:23 | GCON ---
[f rep st] CONSULTATION NEPHROLOGY CONSULTATION DATE OF CONSULTATION: 08/05/2016 REASON FOR CONSULTATION: 1. End-stage renal disease, in need of dialysis. 2. Catheter exit-site infection status post dialysis catheter exchange on July 29. 3. Ongoing antibiotic treatment with vancomycin. 4. Status post left upper arm basilic vein AV fistula by Dr. Pinedo on 08/04/2016. 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 He first presented back on 04/09/2016 with poor p.o. intake with nausea and vomiting. This was associated with weight loss. He was found to have severe renal failure with a B UN greater than 200 and a creatinine of 21.8. Studies revealed obstructive uropathy. Unfortunately , the patient did not recover function with Alba catheter placement. He has had followup with Dr. Wallis of Urology. He came in for admission on 07/07/2016 for a TURP. Since that time, he developed an exit-site infection. Cultures grew out MSSA. He was treated with antibiotics. His catheter exit site continued to have drainage. For this reason, he was referred t o Dr. Pinedo for a new dialysis catheter. He had removal of dialysis catheter with insertion of a ne w catheter on 07/29/2016. He was admitted yesterday for the creation of an AV fistula. He remains in the hospital for wound management and care of his drain. PAST MEDICAL HISTORY: The patient has end-stage renal disease, secondary to obstruction. Other pas t medical history is for inflammatory bladder polyps. PAST SURGICAL HISTORY: Dialysis catheter placement, AV fistula construction, TURP. SOCIAL HISTORY: The patient is a retired psychiatrist. He is . He does not smoke or drink . The patient currently is homeless. He has had a islam experience in the past, which has michael ged his outlook on life and has resulted in him getting ready for the [facility]. FAMILY HISTORY: Positive for colorectal cancer and leukemia. REVIEW OF SYSTEMS: Negative. OUTPATIENT MEDICATIONS: None. ALLERGIES: None. PHYSICAL EXAMINATION: VITAL SIGNS: Weight is 77 kg. Temp 36.5, pulse 65, respirations 20, blood p ressure 107/56. GENERAL APPEARANCE: No apparent distress. SKIN: Unremarkable. NEUROLOGIC: Evelyne sly intact. NECK: Unremarkable. HEART: Regular with no extra heart sounds. LUNGS: Completely c lear to auscultation. ABDOMEN: Benign. EXTREMITIES: Edema to his knees. LABS: Hematocrit of 32. Potassium 5.1, creatinine 3.3. Albumin 4.0. ASSESSMENT: End-stage renal disease in need of dialysis. Will get him on his regular schedule and have him undergo dialysis later today. He does not tolerate much in the way of fluid removal with c omplications of cramping. We will set him for only 500 cc of fluid removal, which is his normal diallo unt in the dialysis unit. He has a new AV fistula with drain in place. This is going to need to be managed as an inpatient as the patient has trouble with wound care given his psychosocial situation. He has had an exit site infection to his prior dialysis catheter. He has had serosanguineous draina ge from his current catheter, which may just be traumatic from the surgery. It has been cultured as an outpatient. My plan is to continue the vancomycin that he has been on until this drainage has r esolved. We will keep the exit site clean. The patient is to continue using topical antibiotics in this area. DISPOSITION: Currently pending. We will plan on dialysis today and then again on Monday if the pat ient remains an inpatient. Copy requested to: Dr. Pinedo [facility] /[id number]/AZIZAL
--- NOTE | 2016-08-05 14:01 | SOAPPROG ---
HERBIE Progress Note Assessment/Plan: Assessment:Plan: Stable on dialysis Catheter care on dialysis Next Hd Monday08/05/16 14:01 Objective: Vital Signs Temp Pulse Resp BP Pulse Ox 36.5 C 65 20 107/56 L 96 08/05/16 07:06 08/05/16 07:06 08/05/16 07:06 08/05/16 07:06 08/05/16 07:06 Laboratory Results 08/04/16 07:00 08/04/16 07:00 08/04/16 08/05/16 08/06/16 05:59 05:59 05:59 Intake Total 550 Output Total 255 15 Balance 295 -15 ICD10 Worksheet Patient Problems: Problems Problem Status Onset Acute renal failure Acute Altered mental status Acute Anemia Acute Cachexia Acute Dehydration Acute Hydronephrosis Acute Hypokalemia Acute Loss of appetite Acute
[2016-08-05] MEDS ORDERED: VANCOMYCIN HCL/NORMAL SALINE 250 ML IV ONE (16:00)
[2016-08-05] MEDS ORDERED: HEPARIN 50,000 UNIT/10 ML VIAL ONE (20:27)
[2016-08-06] MEDS: OXYCODONE/APAP 5/325 TAB PO PRN ×4 (01:02→20:59)
--- NOTE | 2016-08-06 08:18 | SOAPPROG ---
SOAP Progress Note Assessment/Plan: Assessment: CATHETER SITE OK/ AVF FLOWING WELL, MILD SWELLING/ MINIMAL DRAINAGE/ AFEBRILE EATING OK/ NO PROBLEMS Plan:DIALYSIS TODAY, HOME IN AM 08/05/16 11:54 08/06/16 08:18 WOUND OK/ FISTULA FLOW GREAT/ DRAINAGE DECREASING/ HOME SOON Objective: Vital Signs Temp Pulse Resp BP Pulse Ox 36.4 C 65 14 135/69 H 96 08/06/16 00:00 08/06/16 00:00 08/06/16 00:00 08/06/16 00:00 08/06/16 00:00 Laboratory Results 08/04/16 07:00 08/04/16 07:00 08/05/16 08/06/16 08/07/16 05:59 05:59 05:59 Intake Total 550 1200 Output Total 255 25 Balance 295 1175 ICD10 Worksheet Patient Problems: Problems Problem Status Onset Acute renal failure Acute Altered mental status Acute Anemia Acute Cachexia Acute Dehydration Acute Hydronephrosis Acute Hypokalemia Acute Loss of appetite Acute
--- NOTE | 2016-08-06 08:30 | SOAPPROG ---
HERBIE Progress Note Assessment/Plan: Assessment:Plan: ESRD-stable -for Hd Monday -plan for this as outpatient, but can be done here if he remains inpatient Access-still with drainage Dispo-labs tomorrow -home when can be managed safely as outpatient -patient relates that there are inaccuracies in some of his old admission records -I advised him that he can get these inaccuracies removed by going through medical records 08/06/16 08:29 Subjective: no complaints Objective: Vital Signs Temp Pulse Resp BP Pulse Ox 36.4 C 65 14 135/69 H 96 08/06/16 00:00 08/06/16 00:00 08/06/16 00:00 08/06/16 00:00 08/06/16 00:00 Laboratory Results 08/04/16 07:00 08/04/16 07:00 08/05/16 08/06/16 08/07/16 05:59 05:59 05:59 Intake Total 550 1200 Output Total 255 25 Balance 295 1175 Physical Exam - Physical Exam General Appearance: WD/WN, alert, no apparent distress EENT: normal ENT inspection Neck: normal inspection Respiratory: lungs clear, normal breath sounds, No respiratory distress Cardiac/Chest: regular rate, rhythm, No diastolic murmur, No systolic murmur, No friction rub Abdomen: normal bowel sounds Extremities: swelling, other (avf patient, drain in place) ICD10 Worksheet Patient Problems: Problems Problem Status Onset Acute renal failure Acute Altered mental status Acute Anemia Acute Cachexia Acute Dehydration Acute Hydronephrosis Acute Hypokalemia Acute Loss of appetite Acute
[2016-08-06] MEDS ORDERED: POLYETHYLENE GLYCOL 3350 17 GM PKT PO PRN (16:19)
[2016-08-06] MEDS ORDERED: BISACODYL 10 MG SUPP PR PRN (16:19)
[2016-08-06] MEDS ORDERED: LACTULOSE 20 GM/30 ML UDCUP PO PRN (16:19)
[2016-08-06] MEDS ORDERED: MAGNESIUM HYDROXIDE 30 ML UDCUP PO PRN (16:19)
[2016-08-06] MEDS: SENNOSIDES/DOCUSATE SODIUM TAB PO SCH (21:00)
[2016-08-07] MEDS: OXYCODONE/APAP 5/325 TAB PO PRN ×4 (01:31→11:43)
[2016-08-07 06:04] LABS: ALBUMIN 3.6 g/dL (3.5-5.0); ANION GAP 11 mEq/L (8-16); CARBON DIOXIDE 22 mEq/l (22-31); CHLORIDE 103 mEq/L (97-110); CREATININE 4.5 mg/dL (0.7-1.3); GLOMERULAR FILTRATION RATE 13; GLUCOSE 92 mg/dL (70-100); POTASSIUM 4.7 mEq/L (3.5-5.2); SODIUM 136 mEq/L (134-144)
[2016-08-07 07:42] VITALS: BP 113/56; PULSE 57; RESP 18; TEMP 98.2; O2SAT 94
[2016-08-07] MEDS: SENNOSIDES/DOCUSATE SODIUM TAB PO SCH (09:34)
--- NOTE | 2016-08-07 10:49 | SOAPPROG ---
SOAP Progress Note Assessment/Plan: Assessment: CATHETER SITE OK/ AVF FLOWING WELL, MILD SWELLING/ MINIMAL DRAINAGE/ AFEBRILE EATING OK/ NO PROBLEMS Plan:DIALYSIS TODAY, HOME IN AM 08/05/16 11:54 08/06/16 08:18 WOUND OK/ FISTULA FLOW GREAT/ DRAINAGE DECREASING/ HOME SOON 08/07/16 10:47 wound ok/ afebrile/ minimal drainage/ home soon/ AVF good thrill Objective: Vital Signs Temp Pulse Resp BP Pulse Ox 36.8 C 57 L 18 113/56 L 94 08/07/16 07:41 08/07/16 07:41 08/07/16 07:41 08/07/16 07:41 08/07/16 07:41 Laboratory Results 08/04/16 07:00 08/07/16 05:04 08/06/16 08/07/16 08/08/16 05:59 05:59 05:59 Intake Total 1200 Output Total 25 10 5 Balance 1175 -10 -5 ICD10 Worksheet Patient Problems: Problems Problem Status Onset Acute renal failure Acute Altered mental status Acute Anemia Acute Cachexia Acute Dehydration Acute Hydronephrosis Acute Hypokalemia Acute Loss of appetite Acute
--- NOTE | 2016-08-07 11:57 | SOAPPROG ---
SOAP Progress Note Assessment/Plan: Assessment: CATHETER SITE OK/ AVF FLOWING WELL, MILD SWELLING/ MINIMAL DRAINAGE/ AFEBRILE EATING OK/ NO PROBLEMS Plan:DIALYSIS TODAY, HOME IN AM 08/05/16 11:54 08/06/16 08:18 WOUND OK/ FISTULA FLOW GREAT/ DRAINAGE DECREASING/ HOME SOON 08/07/16 10:47 wound ok/ afebrile/ minimal drainage/ home soon/ AVF good thrill 08/07/16 11:55 GOOD FLOW/ WOUND OK/ MINIMAL DRAINAGE/ HOME TODAY Objective: Vital Signs Temp Pulse Resp BP Pulse Ox 36.8 C 57 L 18 113/56 L 94 08/07/16 07:41 08/07/16 07:41 08/07/16 07:41 08/07/16 07:41 08/07/16 07:41 Laboratory Results 08/04/16 07:00 08/07/16 05:04 08/06/16 08/07/16 08/08/16 05:59 05:59 05:59 Intake Total 1200 Output Total 25 10 5 Balance 1175 -10 -5 ICD10 Worksheet Patient Problems: Problems Problem Status Onset Acute renal failure Acute Altered mental status Acute Anemia Acute Cachexia Acute Dehydration Acute Hydronephrosis Acute Hypokalemia Acute Loss of appetite Acute
--- NOTE | 2016-08-07 13:35 | SOAPPROG ---
SOAP Progress Note Assessment/Plan: Assessment:Plan: ESRD-stable -for Hd Monday -plan for this as outpatient -ready for discharge today Access-no evidence of drainage from catheter -biopatch and tegaderm dressing -AVF looks robust Dispo-labs demonstrate no recovery of renal function -creatinine 4.5 -home today, appears that he can be managed safely as outpatient -patient relates that there are inaccuracies in some of his old admission records 08/07/16 13:34 Subjective: no new complaints Objective: Vital Signs Temp Pulse Resp BP Pulse Ox 36.8 C 57 L 18 113/56 L 94 08/07/16 07:41 08/07/16 07:41 08/07/16 07:41 08/07/16 07:41 08/07/16 07:41 Laboratory Results 08/04/16 07:00 08/07/16 05:04 08/06/16 08/07/16 08/08/16 05:59 05:59 05:59 Intake Total 1200 Output Total 25 10 5 Balance 1175 -10 -5 Physical Exam - Physical Exam General Appearance: WD/WN, alert, no apparent distress EENT: normal ENT inspection Neck: normal inspection Respiratory: lungs clear, normal breath sounds, No respiratory distress Cardiac/Chest: regular rate, rhythm Abdomen: normal bowel sounds Extremities: swelling (unchanged), other (AVF and catheter exit site look good) ICD10 Worksheet Patient Problems: Problems Problem Status Onset Acute renal failure Acute Altered mental status Acute Anemia Acute Cachexia Acute Dehydration Acute Hydronephrosis Acute Hypokalemia Acute Loss of appetite Acute
== END 2016-08-07 14:10 | disposition home or self-care (01) | DRG 675 ==
LOC: FSGY 05:35 → F3E 09:30 → OBSVTOIN 08-05 13:30
PROVIDERS: ADMIT Surgery; ATTEND Surgery
PROC: 03180ZD Bypass Left Brachial Artery to Upper Arm Vein, Open Approach (ICD-10-PCS; principal; 2016-08-04 07:15)
PROC: 5A1D00Z (ICD-10-PCS; 2016-08-05)
DX: N18.6 End stage renal disease (principal); Z79.2 Long term (current) use of antibiotics
CPT/HCPCS: J0690; J1170; J1644; J2440; J2704; J2720; J3010; J3370